=== PATIENT | female | born 1950 | race African-American/Black ===

== ENCOUNTER 2021-01-23 11:57 | Inpatient (IN) | payer MEDICARE, MEDICAID ==
[~2021-01-23] VITALS: Ht 165.1 cm; Wt 40.0 kg
[2021-01-23] MEDS ORDERED: IV NORMAL SALINE 1000ML BAG 1,000 ML IV ONE ×2 (12:30→14:30)
[2021-01-23] MEDS ORDERED: FAMOTIDINE 20 MG/2 ML VIAL IVP ONE (12:30)
[2021-01-23] MEDS ORDERED: ONDANSETRON PF 4 MG/2 ML VIAL. IVP ONE (12:30)
--- NOTE | 2021-01-23 12:30 | PHYS DOC ---
Past Medical History Past Medical History: Anxiety, Asthma, Cancer, COPD, Hypertension, Other Additional Past Medical Histor: breast cancer, HIV Past Surgical History: Hysterectomy, Tonsillectomy, Other Additional Past Surgical Histo: bowel resection, adenoidectomy Smoking Status: Current Every Day Smoker Additional Information: reports she does not inhale cigarettes, just lights them Alcohol Use: None Drug Use: None General Adult EDM: Chief Complaint: ABDOMINAL PAIN HPI: HPI: Patient is a 70 year old female with a history of open hysterectomy years ago, bowel resection, hypertension, HIV, anxiety, COPD current smoker, breast cancer currently on chemo every 3 weeks last treatment 3 weeks ago presenting to the ED today complaining of 10 out of 10 bilateral upper abdominal pain with nausea and vomiting, symptoms began yesterday around 4 PM. Patient denies any fever. Jah cribes the pain as cramping and intermittent but has gotten worse this morning. Denies any hematemesis. Denies any diarrhea. Denies anything specifically relieving the pain. Review of Systems: Review of Systems: Constitutional: Denies fever or chills. [] Eyes: Denies change in visual acuity. [] HENT: Denies nasal congestion or sore throat. [] Respiratory: Denies cough or shortness of breath. [] Cardiovascular: Denies chest pain or edema. [] GI: Reports bilateral upper abdominal pain with nausea and vomiting, denies bloody stools or diarrhea. [] : Denies dysuria. [] Musculoskeletal: Denies back pain or joint pain. [] Integument: Denies rash. [] Neurologic: Denies headache, focal weakness or sensory changes. [] Psychiatric: Denies depression or anxiety. [] Heart Score: Risk Factors: Risk Factors: DM, Current or recent (<one month) smoker, HTN, HLP, family history of CAD, obesity. Risk Scores: Score 0 - 3: 2.5% MACE over next 6 weeks - Discharge Home Score 4 - 6: 20.3% MACE over next 6 weeks - Admit for Clinical Observation Score 7 - 10: 72.7% MACE over next 6 weeks - Early Invasive Strategies Current Medications: Current Medications Medications (Trade) Dose Ordered Sig/Corey Start Time Stop Time Status Last Admin Dose Admin Famotidine (Pepcid Vial) 20 mg 1X ONCE 01/23/21 12:30 01/23/21 12:31 Morphine Sulfate (Morphine Sulfate) 4 mg PRN Q15MIN PRN 01/23/21 12:30 01/24/21 12:29 Ondansetron HCl (Zofran) 4 mg 1X ONCE 01/23/21 12:30 01/23/21 12:31 Sodium Chloride 1,000 ml @ 1,000 mls/hr 1X ONCE 01/23/21 12:30 01/23/21 13:29 Allergies: Allergies: Allergies Coded Allergies Type Severity Reaction Last Updated Verified No Known Drug Allergies 01/23/21 No Physical Exam: PE: Constitutional: Cachectic appearing patient, no acute distress, non-toxic appearance. [] HENT: Normocephalic, atraumatic, bilateral external ears normal, oropharynx moist, no oral exudates, nose normal. [] Eyes: PERRLA, EOMI, conjunctiva normal, no discharge. [] Neck: Normal range of motion, no tenderness, supple, no stridor. [] Cardiovascular:Heart rate regular rhythm Lungs & Thorax: Short of air from chronic COPD, decreased lung sounds Abdomen: Old healed surgical incision noted midline abdomen. Bowel sounds normal, soft, tenderness diffusely to bilateral upper abdomen with no obvious point tenderness to the right upper quadrant, negative Hopper sign, no right lower quadrant tenderness, no masses, no pulsatile masses. [] Skin: Warm, dry, no erythema, no rash. [] Back: No tenderness, no CVA tenderness. [] Extremities: No tenderness, no cyanosis, no clubbing, ROM intact, no edema. [] Neurologic: Alert and oriented X 3, normal motor function, normal sensory fun ction, no focal deficits noted. [] Psychologic: Affect normal, judgement normal, mood normal. [] Current Patient Data: Vital Signs: Vital Signs Date Time Temp Pulse Resp B/P (MAP) Pulse Ox O2 Delivery O2 Flow Rate FiO2 01/23/21 12:13 97.9 67 24 134/74 (94) 97 Room Air 97.9 EKG: EKG: [] Radiology/Procedures: Radiology/Procedures: []PROCEDURE: CT ABD PELV W/ IV CONTRST ONLY INDICATION: Reason: n/v/abd pain / Spl. Instructions: [id number] 75ML / History: . COMPARISON: None. TECHNIQUE: Axial CT images obtained through the abdomen and pelvis with contrast. One or more of the following individualized dose reduction techniques were utilized for this examination: 1. Automated exposure control; 2. Adjustment of the mA and/or kV according to patient size; 3. Use of iterative reconstruction technique. FINDINGS: Emphysematous changes at partially visualized lung bases. There are some surgical clips seen adjacent to the esophagus with postoperative changes at stomach. Moderate calcific atherosclerosis. Liver is prominent in size and appears mildly low density which can be seen with mild fatty infiltration. No peripancreatic fluid collection. Calcification within the pancreas. Spleen unremarkable. No left-sided hydronephrosis. Urinary bladder has minimal urine within it at time of exam. No right-sided hydronephrosis. Dilated loops of small bowel are identified with distal decompression there are small amount of mesenteric edema seen transition point at right lower quadrant. Suspected second transition point at left side of abdomen Degenerative changes of the spine with multilevel central canal and neural for aminal stenosis. Osseous demineralization. IMPRESSION: * Dilated loops of small bowel are identified with adjacent mesenteric edema which can be seen with small bowel obstruction. There is 2 apparent transition points therefore closed-loop is a consideration. * Emphysematous changes at lung bases. Electronically signed by: Gem Nicole MD (01/23/2021 2:01 PM) [id number] DICTATED and SIGNED BY: GEM NICOLE MD DATE: 01/23/21 [id number] Course & Med Decision Making: Course & Med Decision Making Pertinent Labs and Imaging studies reviewed. (See chart for details) This is a 70-year-old female patient currently on chemo for breast cancer presenting today complaining of bilateral upper abdominal pain with nausea and vomiting that began last night. Last chemo treatment was 3 weeks ago. Patient appears short of air and states this is from her chronic COPD. She is cachectic. CBC, CMP, lactic-with nothing really acute CT of the abdomen and pelvic was noted for small bowel obstruction with transition point in the right lower quadrant as well as left lower quadrant Spoke with Dr. Farris who requested to admit patient and put an NG Spoke with Dr. Esquivel who accepted patient for admission Advised to consider smoking cessation. [place] Disclaimer: Sergey Disclaimer: This electronic medical record was generated, in whole or in part, using a voice recognition dictation system. Departure Departure Impression: Primary Impression: SBO (small bowel obstruction) Additional Impressions: Person under investigation for COVID-19 Nausea and vomiting Qualified Codes: R11.2 - Nausea with vomiting, unspecified Abdominal pain Qualified Codes: R10.10 - Upper abdominal pain, unspecified Smoking addiction Disposition: 09 ADMITTED INPT THIS HOSP Condition: STABLE Referrals: UNKNOWN PCP NAME (PCP) MELLY SAWANT APRN Jan 23, 2021 12:30
[2021-01-23 12:49] LABS: BASO # 0.1 x10^3/uL (0.0-0.2); BASO % 1 % (0-3); EOS % 1 % (0-3); HEMATOCRIT 41.9 % (36.0-47.0); HEMOGLOBIN 13.6 g/dL (12.0-15.5); LYMPH # 0.9 x10^3/uL (1.0-4.8); LYMPH % 11 % (24-48); MEAN CORPUSCULAR HEMOGLOBIN 31 pg (25-35); MEAN CORPUSCULAR HGB CONC 33 g/dL (31-37); MEAN CORPUSCULAR VOLUME 94 fL (79-100); MONO # 0.6 x10^3/uL (0.0-1.1); MONO % 7 % (0-9); NEUT # 6.8 x10^3/uL (1.8-7.7); NEUT % 81 % (31-73); PLATELET COUNT 231 x10^3/uL (140-400); RED BLOOD COUNT 4.46 x10^6/uL (3.50-5.40); RED CELL DISTRIBUTION WIDTH 13.4 % (11.5-14.5); WHITE BLOOD COUNT 8.4 x10^3/uL (4.0-11.0)
[2021-01-23 13:04] LABS: CALCIUM 8.7 mg/dL (8.5-10.1); CREATININE 0.9 mg/dL (0.6-1.0); GFR 74.7; POTASSIUM 4.9 mmol/L (3.5-5.1)
[2021-01-23 13:10] LABS: ALBUMIN 3.4 g/dL (3.4-5.0); ALBUMIN/GLOBULIN RATIO 0.8 (1.0-1.7); MAGNESIUM 2.3 mg/dL (1.8-2.4); TOTAL BILIRUBIN 0.2 mg/dL (0.2-1.0); TOTAL PROTEIN 7.9 g/dL (6.4-8.2)
[2021-01-23] MEDS: MORPHINE SULFATE 4 MG/ML VIAL. IV/SQ PRN ×2 (13:20→14:47)
[2021-01-23] MEDS ORDERED: CONTRAST GIVEN. MC PRN (13:30)
[2021-01-23] MEDS ORDERED: IOHEXOL 300 MG/ML 100ML VIAL. IV ONE (13:30)
--- NOTE | 2021-01-23 14:03 | RAD ---
INDICATION: Reason: n/v/abd pain / Spl. Instructions: [id number] 75ML / History: . COMPARISON: None. TECHNIQUE: Axial CT images obtained through the abdomen and pelvis with contrast. One or more of the following individualized dose reduction techniques were utilized for this examinat ion: 1. Automated exposure control; 2. Adjustment of the mA and/or kV according to patient size; 3 . Use of iterative reconstruction technique. FINDINGS: Emphysematous changes at partially visualized lung bases. There are some surgical clips seen adjacent to the esophagus with postoperative changes at stomach. Moderate calcific atherosclerosis. Liver is prominent in size and appears mildly low density which can be seen with mild fatty infiltrat ion. No peripancreatic fluid collection. Calcification within the pancreas. Spleen unremarkable. No left-sided hydronephrosis. Urinary bladder has minimal urine within it at time of exam. No right-sided hydronephrosis. Dilated loops of small bowel are identified with distal decompression there are small amount of mesenteric edema seen transition point at right lower quadrant. Suspected s econd transition point at left side of abdomen Degenerative changes of the spine with multilevel central canal and neural foraminal stenosis. Osseous demineralization. IMPRESSION: * Dilated loops of small bowel are identified with adjacent mesenteric edema which can be seen with small bowel obstruction. There is 2 apparent transition points therefore closed-loop is a considerat ion. * Emphysematous changes at lung bases. Electronically signed by: Harish Barroso MD (01/23/2021 2:01 PM) [id number]
[2021-01-23] MEDS ORDERED: MORPHINE SULFATE 4 MG/ML VIAL. IV PRN (14:30)
[2021-01-23] MEDS ORDERED: ONDANSETRON PF 4 MG/2 ML VIAL. IV PRN (14:30)
--- NOTE | 2021-01-23 15:23 | EKG ---
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
--- NOTE | 2021-01-23 15:24 | PDOC1 ---
History and Physical Date of Service: DOS: DATE: 01/23/21 TIME: 15:18 Chief Complaint: Chief Complain: Abdominal pain History of Present Illness: HPI: 70 year old female with a history of open hysterectomy years ago, bowel resection, hypertension, HIV, anxiety, COPD current smoker, breast cancer currently on chemo every 3 weeks last treatment 3 weeks ago presenting to the ED today complaining of 10 out of 10 bilateral upper abdominal pain with nausea and vomiting, symptoms began yesterday around 4 PM. Patient denies any fever. Describes the pain as cramping and intermittent but has gotten worse this morning. Denies any hematemesis. Denies any diarrhea. Denies anything specifically relieving the pain. Past Medical/Surgical History: PMH/PSH: Past Medical History: Anxiety, Asthma, Cancer, COPD, Hypertension, breast cancer, HIV Past Surgical History: Hysterectomy, Tonsillectomy, bowel resection, adenoidectomy Allergies: Allergies: Coded Allergies: No Known Drug Allergies (Unverified , 01/23/21) Family History: Family History: Reviewed with no relevant findings Social History: Social History: Smoking Status: Current Every Day Smoker Additional Information: reports she does not inhale cigarettes, just lights them Alcohol Use: None Drug Use: None Current Medications: Current Medications Current Medications Sodium Chloride 1,000 ml @ 1,000 mls/hr 1X ONCE IV Last administered on 01/23/21at 13:17; Start 01/23/21 at 12:30; Stop 01/23/21 at 13:29; Status DC Ondansetron HCl (Zofran) 4 mg 1X ONCE IVP Last administered on 01/23/21at 13:17; Start 01/23/21 at 12:30; Stop 01/23/21 at 12:31; Status DC Famotidine (Pepcid Vial) 20 mg 1X ONCE IVP Last administered on 01/23/21at 13:17; Start 01/23/21 at 12:30; Stop 01/23/21 at 12:31; Status DC Morphine Sulfate (Morphine Sulfate) 4 mg PRN Q15MIN PRN IV/SQ PAIN GREATER THAN 3/10 Last administered on 01/23/21at 14:47; Start 01/23/21 at 12:30; Stop 01/24/21 at 12:29 Iohexol (Omnipaque 300 Mg/ml) 75 ml 1X ONCE IV Last administered on 01/23/21at 13:41; Start 01/23/21 at 13:30; Stop 01/23/21 at 13:31; Status DC Info (CONTRAST GIVEN -- Rx MONITORING) 1 each PRN DAILY PRN MC SEE COMMENTS; Start 01/23/21 at 13:30; Stop 01/25/21 at 13:29 Ondansetron HCl (Zofran) 4 mg PRN Q8HRS PRN IV NAUSEA/VOMITING; Start 01/23/21 at 14:30; Stop 01/24/21 at 14:29 Morphine Sulfate (Morphine Sulfate) 4 mg PRN Q2HR PRN IV PAIN; Start 01/23/21 at 14:30; Stop 01/24/21 at 14:29 Sodium Chloride 1,000 ml @ 125 mls/hr 1X ONCE IV Last administered on 01/23/21at 15:14; Start 01/23/21 at 14:30; Stop 01/23/21 at 22:29 ROS: Review of Systems Review of System REVIEW OF SYSTEMS: GENERAL: Denies weakness SKIN: No bruising, hair changes or rashes. EYES: No blurred, double or loss of vision. NOSE AND THROAT: No history of nosebleeds, hoarseness or sore throat. HEART: No history of palpitations, chest pain or shortness of breath on exertion. LUNGS: Denies cough, hemoptysis, wheezing or shortness of breath. GASTROINTESTINAL: Denies changes in appetite, nausea, vomiting, diarrhea or constipation. GENITOURINARY: No history of frequency, urgency, hesitancy or nocturia. NEUROLOGIC: Denies history of numbness, tingling, or tremor. PSYCHIATRIC: No history of panic, anxiety or depression. ENDOCRINE: No history of heat or cold intolerance, polyuria or polydipsia. EXTREMITIES: Denies joint pain, pain on walking or stiffness. Physical Exam: Vital Signs: Vital Signs Date Time Temp Pulse Resp B/P (MAP) Pulse Ox O2 Delivery O2 Flow Rate FiO2 01/23/21 12:13 97.9 67 24 134/74 (94) 97 Room Air 97.9 Physcial Exam: GEN: No apparent distress. Alert and oriented HEENT: Normal cephalic, atraumatic, external auditory canals are patent EYES: Extraocular muscles are intact, pupil are equally round and reactive to light and accommodation MUSCULOSKELETAL: Well developed , well nourished, good range of motion ENDOCRINE: No thyromegaly was palpated LYMPHATICS: No cervical chain or axillary nodes were noted HEMATOPOIETIC: No bruising NECK: Supple, no JVD, no thyromegaly was noted LUNGS: Clear to auscultation in all lung goldstein without rhonchi or wheezing HEART: RRR, S!, S2 present. Peripheral pulses intact, no obvious murmurs noted ABDOMEN: Soft, nontender. Positive bowel sounds, no organomegaly, normal bowel sounds EXTREMITIES: Without clubbing, cyanosis, or edema. Pedal pulses intact. Negative Homans sign NEUROLOGIC: Normal speech and tone. A&O x 3, moves all extremities, no obvious focal deficits PSYCHIATRIC: Normal affect, normal mood. Stable SKIN: No ulcerations or rashes, good skin turgor, no jaundice VASCULAR: Good capillary refill, neurovascular bundle appears to be intact Labs: Labs: Laboratory Tests Test 01/23/21 12:27 01/23/21 12:35 Procalcitonin < 0.10 ng/mL (0.00-0.10) White Blood Count 8.4 x10^3/uL (4.0-11.0) Red Blood Count 4.46 x10^6/uL (3.50-5.40) Hemoglobin 13.6 g/dL (12.0-15.5) Hematocrit 41.9 % (36.0-47.0) Mean Corpuscular Volume 94 fL (79-100) Mean Corpuscular Hemoglobin 31 pg (25-35) Mean Corpuscular Hemoglobin Concent 33 g/dL (31-37) Red Cell Distribution Width 13.4 % (11.5-14.5) Platelet Count 231 x10^3/uL (140-400) Neutrophils (%) (Auto) 81 % (31-73) Lymphocytes (%) (Auto) 11 % (24-48) Monocytes (%) (Auto) 7 % (0-9) Eosinophils (%) (Auto) 1 % (0-3) Basophils (%) (Auto) 1 % (0-3) Neutrophils # (Auto) 6.8 x10^3/uL (1.8-7.7) Lymphocytes # (Auto) 0.9 x10^3/uL (1.0-4.8) Monocytes # (Auto) 0.6 x10^3/uL (0.0-1.1) Eosinophils # (Auto) 0.0 x10^3/uL (0.0-0.7) Basophils # (Auto) 0.1 x10^3/uL (0.0-0.2) Sodium Level 139 mmol/L (136-145) Potassium Level 4.9 mmol/L (3.5-5.1) Chloride Level 103 mmol/L (98-107) Carbon Dioxide Level 27 mmol/L (21-32) Anion Gap 9 (6-14) Blood Urea Nitrogen 21 mg/dL (7-20) Creatinine 0.9 mg/dL (0.6-1.0) Estimated GFR (Cockcroft-Gault) 74.7 BUN/Creatinine Ratio 23 (6-20) Glucose Level 129 mg/dL (70-99) Lactic Acid Level 1.9 mmol/L (0.4-2.0) Calcium Level 8.7 mg/dL (8.5-10.1) Magnesium Level 2.3 mg/dL (1.8-2.4) Total Bilirubin 0.2 mg/dL (0.2-1.0) Aspartate Amino Transf (AST/SGOT) 29 U/L (15-37) Alanine Aminotransferase (ALT/SGPT) 27 U/L (14-59) Alkaline Phosphatase 257 U/L (46-116) Troponin I Quantitative < 0.017 ng/mL (0.000-0.055) NM-Gwq-J-Type Natriuretic Peptide 33 pg/mL (0-124) Total Protein 7.9 g/dL (6.4-8.2) Albumin 3.4 g/dL (3.4-5.0) Albumin/Globulin Ratio 0.8 (1.0-1.7) Lipase 104 U/L (73-393) Ethyl Alcohol Level < 10 mg/dL (0-10) Laboratory Tests Test 01/23/21 12:27 01/23/21 12:35 Procalcitonin < 0.10 ng/mL (0.00-0.10) White Blood Count 8.4 x10^3/uL (4.0-11.0) Red Blood Count 4.46 x10^6/uL (3.50-5.40) Hemoglobin 13.6 g/dL (12.0-15.5) Hematocrit 41.9 % (36.0-47.0) Mean Corpuscular Volume 94 fL (79-100) Mean Corpuscular Hemoglobin 31 pg (25-35) Mean Corpuscular Hemoglobin Concent 33 g/dL (31-37) Red Cell Distribution Width 13.4 % (11.5-14.5) Platelet Count 231 x10^3/uL (140-400) Neutrophils (%) (Auto) 81 % (31-73) Lymphocytes (%) (Auto) 11 % (24-48) Monocytes (%) (Auto) 7 % (0-9) Eosinophils (%) (Auto) 1 % (0-3) Basophils (%) (Auto) 1 % (0-3) Neutrophils # (Auto) 6.8 x10^3/uL (1.8-7.7) Lymphocytes # (Auto) 0.9 x10^3/uL (1.0-4.8) Monocytes # (Auto) 0.6 x10^3/uL (0.0-1.1) Eosinophils # (Auto) 0.0 x10^3/uL (0.0-0.7) Basophils # (Auto) 0.1 x10^3/uL (0.0-0.2) Sodium Level 139 mmol/L (136-145) Potassium Level 4.9 mmol/L (3.5-5.1) Chloride Level 103 mmol/L (98-107) Carbon Dioxide Level 27 mmol/L (21-32) Anion Gap 9 (6-14) Blood Urea Nitrogen 21 mg/dL (7-20) Creatinine 0.9 mg/dL (0.6-1.0) Estimated GFR (Cockcroft-Gault) 74.7 BUN/Creatinine Ratio 23 (6-20) Glucose Level 129 mg/dL (70-99) Lactic Acid Level 1.9 mmol/L (0.4-2.0) Calcium Level 8.7 mg/dL (8.5-10.1) Magnesium Level 2.3 mg/dL (1.8-2.4) Total Bilirubin 0.2 mg/dL (0.2-1.0) Aspartate Amino Transf (AST/SGOT) 29 U/L (15-37) Alanine Aminotransferase (ALT/SGPT) 27 U/L (14-59) Alkaline Phosphatase 257 U/L (46-116) Troponin I Quantitative < 0.017 ng/mL (0.000-0.055) AD-Uve-D-Type Natriuretic Peptide 33 pg/mL (0-124) Total Protein 7.9 g/dL (6.4-8.2) Albumin 3.4 g/dL (3.4-5.0) Albumin/Globulin Ratio 0.8 (1.0-1.7) Lipase 104 U/L (73-393) Ethyl Alcohol Level < 10 mg/dL (0-10) Images: Images CT ABDOMEN PELVIS IMPRESSION: * Dilated loops of small bowel are identified with adjacent mesenteric edema which can be seen with small bowel obstruction. There is 2 apparent transition points therefore closed-loop is a consideration. * Emphysematous changes at lung bases. Assessment/Plan Assessment/Plan Acute abdominal pain due to closed-loop small bowel obstruction Prerenal azotemia Elevated alkaline phosphatase Severe protein malnutrition, BMI of 14 History of breast cancer status postmastectomy and currently on chemotherapy Failure to thrive History of COPD History of HIV Admit to medicine for further management General surgery consult NG tube placement Continue IV fluids Keep n.p.o. IV pain control Lovenox for DVT prophylaxis Protonix GI prophylaxis ADA diet Full code Discussed with RN and SW Disposition pending surgical evaluation Surrogate decision maker is the Justifications for Admission Other Justification DONNA MAHARAJ MD Jan 23, 2021 15:24
[2021-01-23] MEDS ORDERED: DEXTROSE 50% 25 GM / 50ML DISP.SYRIN. IV PRN (15:30)
[2021-01-23] MEDS ORDERED: MORPHINE SULFATE 2 MG/ML VIAL. IV PRN (15:30)
[2021-01-23] MEDS ORDERED: DOCUSATE SODIUM 100 MG CAPSULE. PO PRN (15:30)
[2021-01-23] MEDS: IV NORMAL SALINE 1000ML BAG 1,000 ML IV SCH ×2 (15:30→23:09)
[2021-01-23] MEDS ORDERED: SENNOSIDES 8.6 MG TABLET PO PRN (15:30)
[2021-01-23] MEDS ORDERED: ACETAMINOPHEN 325 MG TABLET. PO PRN (15:30)
[2021-01-23] MEDS: ENOXAPARIN 30 MG/0.3 ML SYRINGE. SQ SCH (17:05)
[2021-01-23] MEDS: PANTOPRAZOLE IV PUSH 40 MG VIAL. IVP SCH (17:05)
[2021-01-23] MEDS: ONDANSETRON PF 4 MG/2 ML VIAL. IVP PRN (17:33)
[2021-01-23 17:40] VITALS: BP 130/81
--- NOTE | 2021-01-23 18:37 | EKG ---
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
[2021-01-23 19:00] VITALS: BP 132/65
[2021-01-23 23:00] VITALS: BP 105/65
[2021-01-24 03:00] VITALS: BP 121/63
[2021-01-24 07:00] VITALS: BP 101/56
[2021-01-24 07:25] LABS: BASO % 1 % (0-3); EOS # 0.1 x10^3/uL (0.0-0.7); EOS % 2 % (0-3); HEMATOCRIT 33.3 % (36.0-47.0); HEMOGLOBIN 10.8 g/dL (12.0-15.5); LYMPH # 1.2 x10^3/uL (1.0-4.8); LYMPH % 19 % (24-48); MEAN CORPUSCULAR HEMOGLOBIN 31 pg (25-35); MEAN CORPUSCULAR HGB CONC 32 g/dL (31-37); MEAN CORPUSCULAR VOLUME 95 fL (79-100); MONO # 0.6 x10^3/uL (0.0-1.1); MONO % 9 % (0-9); NEUT # 4.5 x10^3/uL (1.8-7.7); NEUT % 70 % (31-73); PLATELET COUNT 199 x10^3/uL (140-400); RED BLOOD COUNT 3.52 x10^6/uL (3.50-5.40); RED CELL DISTRIBUTION WIDTH 13.6 % (11.5-14.5); WHITE BLOOD COUNT 6.5 x10^3/uL (4.0-11.0)
[2021-01-24 07:43] LABS: CALCIUM 7.5 mg/dL (8.5-10.1); CREATININE 0.8 mg/dL (0.6-1.0); GFR 85.6; PHOSPHORUS 3.3 mg/dL (2.6-4.7); POTASSIUM 4.9 mmol/L (3.5-5.1)
[2021-01-24] MEDS: PANTOPRAZOLE IV PUSH 40 MG VIAL. IVP SCH (07:56)
--- NOTE | 2021-01-24 08:41 | PDOC2 ---
LATOYA MORGAN RELAY TESTER 01/24/21 0841: CONSULT Date of Consult Date of Consult DATE: 01/24/21 TIME: 08:35 Reason for Consult Reason for Consult: SBO Referring Physician Referring Physician: ER Identification/Chief Complaint Chief Complaint abdominal pain Source Source: Chart review, Patient History of Present Illness Reason for Visit: Started having abdominal pain Thursday, this progressively worsened, with vomiting yesterday. NO stool or flatus in a couple days. Currently pain improved still some nausea. Er attempted NG, however could not place and had significant nasal bleeding. Hx of gastric resection for ulcer 40 years ago. No known hx of bowel obstructions since that time. Only other surgery was a hysterectomy She is currently on chemotherapy at for breast cancer Past Medical History Cardiovascular: HTN Pulmonary: COPD GI: Other (ulcer) Heme/Onc: Cancer (breast ), Other (HIV) Past Surgical History Past Surgical History: Hysterectomy, Other (gastrectomy) Family History Family History: Other (noncontributory to current illness ) Social History <1 pack per day ALCOHOL: none Drugs: None Lives: with Family Current Problem List Problem List Problems Medical Problems: (1) Abdominal pain Status: Acute (2) Nausea and vomiting Status: Acute (3) Person under investigation for COVID-19 Status: Acute (4) SBO (small bowel obstruction) Status: Acute (5) Smoking addiction Status: Acute Current Medications Current Medications Current Medications Sodium Chloride 1,000 ml @ 1,000 mls/hr 1X ONCE IV Last administered on 01/23/21at 13:17; Start 01/23/21 at 12:30; Stop 01/23/21 at 13:29; Status DC Ondansetron HCl (Zofran) 4 mg 1X ONCE IVP Last administered on 01/23/21at 13:17; Start 01/23/21 at 12:30; Stop 01/23/21 at 12:31; Status DC Famotidine (Pepcid Vial) 20 mg 1X ONCE IVP Last administered on 01/23/21at 13:17; Start 01/23/21 at 12:30; Stop 01/23/21 at 12:31; Status DC Morphine Sulfate (Morphine Sulfate) 4 mg PRN Q15MIN PRN IV/SQ PAIN GREATER THAN 3/10 Last administered on 01/23/21at 14:47; Start 01/23/21 at 12:30; Stop 01/24/21 at 12:29 Iohexol (Omnipaque 300 Mg/ml) 75 ml 1X ONCE IV Last administered on 01/23/21at 13:41; Start 01/23/21 at 13:30; Stop 01/23/21 at 13:31; Status DC Info (CONTRAST GIVEN -- Rx MONITORING) 1 each PRN DAILY PRN MC SEE COMMENTS; Start 01/23/21 at 13:30; Stop 01/25/21 at 13:29 Ondansetron HCl (Zofran) 4 mg PRN Q8HRS PRN IV NAUSEA/VOMITING; Start 01/23/21 at 14:30; Stop 01/24/21 at 14:29 Morphine Sulfate (Morphine Sulfate) 4 mg PRN Q2HR PRN IV PAIN Last administered on 01/24/21at 03:36; Start 01/23/21 at 14:30; Stop 01/24/21 at 14:29 Sodium Chloride 1,000 ml @ 125 mls/hr 1X ONCE IV Last administered on 01/23/21at 15:14; Start 01/23/21 at 14:30; Stop 01/23/21 at 22:29; Status DC Sennosides (Senna) 17.2 mg PRN BID PRN PO CONSTIPATION; Start 01/23/21 at 15:30 Docusate Sodium (Colace) 100 mg PRN DAILY PRN PO HARD STOOLS; Start 01/23/21 at 15:30 Ondansetron HCl (Zofran) 4 mg PRN Q6HRS PRN IVP NAUSEA/VOMITING Last administered on 01/23/21at 17:33; Start 01/23/21 at 15:30 Dextrose (Dextrose 50%-Water Syringe) 12.5 gm PRN Q15MIN PRN IV SEE COMMENTS; Start 01/23/21 at 15:30 Sodium Chloride 1,000 ml @ 100 mls/hr Q10H IV Last administered on 01/23/21at 23:09; Start 01/23/21 at 15:30 Acetaminophen (Tylenol) 650 mg PRN Q4HRS PRN PO TEMP OVER 100.4F OR MILD PAIN; Start 01/23/21 at 15:30 Enoxaparin Sodium (Lovenox 30mg Syringe) 30 mg Q24H SQ Last administered on 01/23/21at 17:05; Start 01/23/21 at 16:00 Pantoprazole Sodium (PROTONIX VIAL for IV PUSH) 40 mg DAILYAC IVP Last administered on 01/24/21at 07:56; Start 01/23/21 at 16:30 Morphine Sulfate (Morphine Sulfate) 1 mg PRN Q1HR PRN IV PAIN; Start 01/23/21 at 15:30 Morphine Sulfate (Morphine Sulfate) 2 mg PRN Q2HR PRN IVP SEVERE PAIN 7-10; Start 01/23/21 at 15:45 Allergies Allergies: Coded Allergies: No Known Drug Allergies (Unverified , 01/23/21) ROS General: No: Chills, Other (fevers ) PSYCHOLOGICAL ROS: No: Anxiety, Depression Eyes: No Blurry vision, No Double vision HEENT: No: Heacaches, Sore Throat Hematological and Lymphatic: YES: Bleeding Problems; No: Blood Clots Respiratory: YES: Cough, Shortness of breath Cardiovascular: No Chest Pain, No Palpitations Gastrointestinal: Yes Other (see hpi) Genitourinary: No Dysuria, No Hematuria Musculoskeletal: No Joint Pain, No Muscle Pain Neurological: No Impaired Coord/balance, No Numbness/Tingling Skin: No Pruritus, No Rash Physical Exam General: Alert, Oriented X3, Cooperative HEENT: Atraumatic, PERRLA Lungs: Other (diminished, wearing 02) Heart: Regular rate, Normal S1, Normal S2 Abdomen: Soft, Other (mildly distended, nontender, midline scar ) Extremities: No clubbing, No cyanosis Skin: No rashes, No breakdown Neuro: Normal gait, Normal speech Psych/Mental Status: Mental status NL, Mood NL MUSCULOSKELETAL: No deformity, No swelling Vitals VITALS Vital Signs Date Time Temp Pulse Resp B/P (MAP) Pulse Ox O2 Delivery O2 Flow Rate FiO2 01/24/21 07:00 97.3 78 18 101/56 (71) 100 Nasal Cannula 2.0 97.3 Labs Labs Laboratory Tests Test 01/23/21 12:27 01/23/21 12:35 01/23/21 13:29 01/23/21 15:15 Procalcitonin < 0.10 ng/mL (0.00-0.10) White Blood Count 8.4 x10^3/uL (4.0-11.0) Red Blood Count 4.46 x10^6/uL (3.50-5.40) Hemoglobin 13.6 g/dL (12.0-15.5) Hematocrit 41.9 % (36.0-47.0) Mean Corpuscular Volume 94 fL (79-100) Mean Corpuscular Hemoglobin 31 pg (25-35) Mean Corpuscular Hemoglobin Concent 33 g/dL (31-37) Red Cell Distribution Width 13.4 % (11.5-14.5) Platelet Count 231 x10^3/uL (140-400) Neutrophils (%) (Auto) 81 % (31-73) Lymphocytes (%) (Auto) 11 % (24-48) Monocytes (%) (Auto) 7 % (0-9) Eosinophils (%) (Auto) 1 % (0-3) Basophils (%) (Auto) 1 % (0-3) Neutrophils # (Auto) 6.8 x10^3/uL (1.8-7.7) Lymphocytes # (Auto) 0.9 x10^3/uL (1.0-4.8) Monocytes # (Auto) 0.6 x10^3/uL (0.0-1.1) Eosinophils # (Auto) 0.0 x10^3/uL (0.0-0.7) Basophils # (Auto) 0.1 x10^3/uL (0.0-0.2) Sodium Level 139 mmol/L (136-145) Potassium Level 4.9 mmol/L (3.5-5.1) Chloride Level 103 mmol/L (98-107) Carbon Dioxide Level 27 mmol/L (21-32) Anion Gap 9 (6-14) Blood Urea Nitrogen 21 mg/dL (7-20) Creatinine 0.9 mg/dL (0.6-1.0) Estimated GFR (Cockcroft-Gault) 74.7 BUN/Creatinine Ratio 23 (6-20) Glucose Level 129 mg/dL (70-99) Lactic Acid Level 1.9 mmol/L (0.4-2.0) Calcium Level 8.7 mg/dL (8.5-10.1) Magnesium Level 2.3 mg/dL (1.8-2.4) Total Bilirubin 0.2 mg/dL (0.2-1.0) Aspartate Amino Transf (AST/SGOT) 29 U/L (15-37) Alanine Aminotransferase (ALT/SGPT) 27 U/L (14-59) Alkaline Phosphatase 257 U/L (46-116) Troponin I Quantitative < 0.017 ng/mL (0.000-0.055) < 0.017 ng/mL (0.000-0.055) JS-Tnq-F-Type Natriuretic Peptide 33 pg/mL (0-124) Total Protein 7.9 g/dL (6.4-8.2) Albumin 3.4 g/dL (3.4-5.0) Albumin/Globulin Ratio 0.8 (1.0-1.7) Lipase 104 U/L (73-393) Ethyl Alcohol Level < 10 mg/dL (0-10) Coronavirus (PCR) Not detected (Not Detected) Test 01/23/21 18:50 01/24/21 06:37 Troponin I Quantitative < 0.017 ng/mL (0.000-0.055) White Blood Count 6.5 x10^3/uL (4.0-11.0) Red Blood Count 3.52 x10^6/uL (3.50-5.40) Hemoglobin 10.8 g/dL (12.0-15.5) Hematocrit 33.3 % (36.0-47.0) Mean Corpuscular Volume 95 fL (79-100) Mean Corpuscular Hemoglobin 31 pg (25-35) Mean Corpuscular Hemoglobin Concent 32 g/dL (31-37) Red Cell Distribution Width 13.6 % (11.5-14.5) Platelet Count 199 x10^3/uL (140-400) Neutrophils (%) (Auto) 70 % (31-73) Lymphocytes (%) (Auto) 19 % (24-48) Monocytes (%) (Auto) 9 % (0-9) Eosinophils (%) (Auto) 2 % (0-3) Basophils (%) (Auto) 1 % (0-3) Neutrophils # (Auto) 4.5 x10^3/uL (1.8-7.7) Lymphocytes # (Auto) 1.2 x10^3/uL (1.0-4.8) Monocytes # (Auto) 0.6 x10^3/uL (0.0-1.1) Eosinophils # (Auto) 0.1 x10^3/uL (0.0-0.7) Basophils # (Auto) 0.0 x10^3/uL (0.0-0.2) Sodium Level 141 mmol/L (136-145) Potassium Level 4.9 mmol/L (3.5-5.1) Chloride Level 109 mmol/L (98-107) Carbon Dioxide Level 26 mmol/L (21-32) Anion Gap 6 (6-14) Blood Urea Nitrogen 23 mg/dL (7-20) Creatinine 0.8 mg/dL (0.6-1.0) Estimated GFR (Cockcroft-Gault) 85.6 Glucose Level 55 mg/dL (70-99) Calcium Level 7.5 mg/dL (8.5-10.1) Phosphorus Level 3.3 mg/dL (2.6-4.7) Magnesium Level 2.0 mg/dL (1.8-2.4) Laboratory Tests Test 01/23/21 12:27 01/23/21 12:35 01/23/21 13:29 01/23/21 15:15 Procalcitonin < 0.10 ng/mL (0.00-0.10) White Blood Count 8.4 x10^3/uL (4.0-11.0) Red Blood Count 4.46 x10^6/uL (3.50-5.40) Hemoglobin 13.6 g/dL (12.0-15.5) Hematocrit 41.9 % (36.0-47.0) Mean Corpuscular Volume 94 fL (79-100) Mean Corpuscular Hemoglobin 31 pg (25-35) Mean Corpuscular Hemoglobin Concent 33 g/dL (31-37) Red Cell Distribution Width 13.4 % (11.5-14.5) Platelet Count 231 x10^3/uL (140-400) Neutrophils (%) (Auto) 81 % (31-73) Lymphocytes (%) (Auto) 11 % (24-48) Monocytes (%) (Auto) 7 % (0-9) Eosinophils (%) (Auto) 1 % (0-3) Basophils (%) (Auto) 1 % (0-3) Neutrophils # (Auto) 6.8 x10^3/uL (1.8-7.7) Lymphocytes # (Auto) 0.9 x10^3/uL (1.0-4.8) Monocytes # (Auto) 0.6 x10^3/uL (0.0-1.1) Eosinophils # (Auto) 0.0 x10^3/uL (0.0-0.7) Basophils # (Auto) 0.1 x10^3/uL (0.0-0.2) Sodium Level 139 mmol/L (136-145) Potassium Level 4.9 mmol/L (3.5-5.1) Chloride Level 103 mmol/L (98-107) Carbon Dioxide Level 27 mmol/L (21-32) Anion Gap 9 (6-14) Blood Urea Nitrogen 21 mg/dL (7-20) Creatinine 0.9 mg/dL (0.6-1.0) Estimated GFR (Cockcroft-Gault) 74.7 BUN/Creatinine Ratio 23 (6-20) Glucose Level 129 mg/dL (70-99) Lactic Acid Level 1.9 mmol/L (0.4-2.0) Calcium Level 8.7 mg/dL (8.5-10.1) Magnesium Level 2.3 mg/dL (1.8-2.4) Total Bilirubin 0.2 mg/dL (0.2-1.0) Aspartate Amino Transf (AST/SGOT) 29 U/L (15-37) Alanine Aminotransferase (ALT/SGPT) 27 U/L (14-59) Alkaline Phosphatase 257 U/L (46-116) Troponin I Quantitative < 0.017 ng/mL (0.000-0.055) < 0.017 ng/mL (0.000-0.055) CM-Wgx-Y-Type Natriuretic Peptide 33 pg/mL (0-124) Total Protein 7.9 g/dL (6.4-8.2) Albumin 3.4 g/dL (3.4-5.0) Albumin/Globulin Ratio 0.8 (1.0-1.7) Lipase 104 U/L (73-393) Ethyl Alcohol Level < 10 mg/dL (0-10) Coronavirus (PCR) Not detected (Not Detected) Test 01/23/21 18:50 01/24/21 06:37 Troponin I Quantitative < 0.017 ng/mL (0.000-0.055) White Blood Count 6.5 x10^3/uL (4.0-11.0) Red Blood Count 3.52 x10^6/uL (3.50-5.40) Hemoglobin 10.8 g/dL (12.0-15.5) Hematocrit 33.3 % (36.0-47.0) Mean Corpuscular Volume 95 fL (79-100) Mean Corpuscular Hemoglobin 31 pg (25-35) Mean Corpuscular Hemoglobin Concent 32 g/dL (31-37) Red Cell Distribution Width 13.6 % (11.5-14.5) Platelet Count 199 x10^3/uL (140-400) Neutrophils (%) (Auto) 70 % (31-73) Lymphocytes (%) (Auto) 19 % (24-48) Monocytes (%) (Auto) 9 % (0-9) Eosinophils (%) (Auto) 2 % (0-3) Basophils (%) (Auto) 1 % (0-3) Neutrophils # (Auto) 4.5 x10^3/uL (1.8-7.7) Lymphocytes # (Auto) 1.2 x10^3/uL (1.0-4.8) Monocytes # (Auto) 0.6 x10^3/uL (0.0-1.1) Eosinophils # (Auto) 0.1 x10^3/uL (0.0-0.7) Basophils # (Auto) 0.0 x10^3/uL (0.0-0.2) Sodium Level 141 mmol/L (136-145) Potassium Level 4.9 mmol/L (3.5-5.1) Chloride Level 109 mmol/L (98-107) Carbon Dioxide Level 26 mmol/L (21-32) Anion Gap 6 (6-14) Blood Urea Nitrogen 23 mg/dL (7-20) Creatinine 0.8 mg/dL (0.6-1.0) Estimated GFR (Cockcroft-Gault) 85.6 Glucose Level 55 mg/dL (70-99) Calcium Level 7.5 mg/dL (8.5-10.1) Phosphorus Level 3.3 mg/dL (2.6-4.7) Magnesium Level 2.0 mg/dL (1.8-2.4) Assessment/Plan Assessment/Plan SBO vs ileus was unable to have NG placed in ER she has improved pain, however no bowel function--will obtain abdominal xr if still appearance of obstruction will ask radiology to assist with NG placement and obtain SBFT AMANDA GALDAMEZ MD 01/25/21 1646: CONSULT Assessment/Plan Assessment/Plan Agree with above LATOYA MORGAN APRN Jan 24, 2021 08:41 AMANDA GALDAMEZ MD Jan 25, 2021 16:46
[2021-01-24] MEDS: AMINO AC 3%/ELECTROLYTE/GLYCER 1,000 ML IV SCH (10:31)
[2021-01-24 11:00] VITALS: BP 101/50
[2021-01-24] MEDS ORDERED: hydrOXYzine 10 MG TABLET PO PRN (11:15)
[2021-01-24] MEDS: DRONABINOL 2.5 MG CAPSULE. PO SCH ×2 (11:30→16:01)
--- NOTE | 2021-01-24 11:40 | RAD ---
Acute abdominal series without comparison for small bowel obstruction. FINDINGS: Lungs are hyperinflated and there are coarse interstitial changes which may reflect superim posed pulmonary fibrosis. Heart size mildly enlarged. No pleural effusions. No focal pneumonic infilt rates. Small calcified granuloma in the right upper lung. No free air beneath the diaphragm. Stool is present in the right hemicolon. There are persistent dilated central small bowel loops with some kelsea nting suggesting mucosal edema. Overall distribution and extent of dilated small bowel is grossly sta ble compared to CT scan yesterday. Findings are concerning for persist small bowel obstruction. Posts urgical changes are seen at GE junction and in the upper abdomen. No pathologic calcifications are id entified. IMPRESSION: 1. Grossly stable appearance of distended edematous small bowel centrally concerning for small bowel obstruction. Electronically signed by: Gallo Treviño MD (01/24/2021 11:38 AM) [id number]
[2021-01-24] MEDS: ONDANSETRON PF 4 MG/2 ML VIAL. IVP PRN (11:47)
--- NOTE | 2021-01-24 11:57 | PDOC ---
[employer] PROGRESS NOTE Date of Service DOS: DATE: 01/24/21 TIME: 11:50 Chief Complaint Chief Complaint Abdominal pain, N/V Anxiety Asthma Cancer COPD Hypertension History of breast cancer HIV History of Present Illness History of Present Illness 01/24- discussed plan with staff- adding IV nutrition. Pt is plesent and wants to eat, and drink coffee. Spoke with pt about nothing by mouth for now, till obstruction (N/V) dissipates. Last chemo treatment for breast cancer was Thursday (01/21) at , pt happy as the mass has shrunk by 50%. Admits to previous abdominal surgery to repair an ulcer and possibility of adhesions. Consulting ID for HIV management. 70 year old female with a history of open hysterectomy years ago, bowel resection, hypertension, HIV, anxiety, COPD current smoker, breast cancer currently on chemo every 3 weeks last treatment 3 weeks ago presenting to the ED today complaining of 10 out of 10 bilateral upper abdominal pain with nausea and vomiting, symptoms began yesterday around 4 PM. Patient denies any fever. Describes the pain as cramping and intermittent but has gotten worse this morning. Denies any hematemesis. Denies any diarrhea. Denies anything specifically relieving the pain. Vitals/I&O Vitals/I&O: Vital Signs Date Time Temp Pulse Resp B/P (MAP) Pulse Ox O2 Delivery O2 Flow Rate FiO2 01/24/21 11:00 96.8 66 16 101/50 (67) 99 Nasal Cannula 2.0 96.8 I & O 01/23/21 01/23/21 01/24/21 15:00 23:00 07:00 Intake Total 1000 ml 240 ml Balance 1000 ml 240 ml Physical Exam Physical Exam: Very nice, anxious for food and coffee General: Alert, Oriented X3, Cooperative, No acute distress Heart: Regular rate, Normal S1, Normal S2 Lungs: Clear Abdomen: Soft, Other (mildly distended, nontender, midline scar ) Extremities: No clubbing, No cyanosis, No edema Skin: No rashes, No breakdown Labs Labs: Laboratory Tests Test 01/23/21 12:27 01/23/21 12:35 01/23/21 13:29 01/23/21 15:15 Procalcitonin < 0.10 ng/mL (0.00-0.10) White Blood Count 8.4 x10^3/uL (4.0-11.0) Red Blood Count 4.46 x10^6/uL (3.50-5.40) Hemoglobin 13.6 g/dL (12.0-15.5) Hematocrit 41.9 % (36.0-47.0) Mean Corpuscular Volume 94 fL (79-100) Mean Corpuscular Hemoglobin 31 pg (25-35) Mean Corpuscular Hemoglobin Concent 33 g/dL (31-37) Red Cell Distribution Width 13.4 % (11.5-14.5) Platelet Count 231 x10^3/uL (140-400) Neutrophils (%) (Auto) 81 % (31-73) Lymphocytes (%) (Auto) 11 % (24-48) Monocytes (%) (Auto) 7 % (0-9) Eosinophils (%) (Auto) 1 % (0-3) Basophils (%) (Auto) 1 % (0-3) Neutrophils # (Auto) 6.8 x10^3/uL (1.8-7.7) Lymphocytes # (Auto) 0.9 x10^3/uL (1.0-4.8) Monocytes # (Auto) 0.6 x10^3/uL (0.0-1.1) Eosinophils # (Auto) 0.0 x10^3/uL (0.0-0.7) Basophils # (Auto) 0.1 x10^3/uL (0.0-0.2) Sodium Level 139 mmol/L (136-145) Potassium Level 4.9 mmol/L (3.5-5.1) Chloride Level 103 mmol/L (98-107) Carbon Dioxide Level 27 mmol/L (21-32) Anion Gap 9 (6-14) Blood Urea Nitrogen 21 mg/dL (7-20) Creatinine 0.9 mg/dL (0.6-1.0) Estimated GFR (Cockcroft-Gault) 74.7 BUN/Creatinine Ratio 23 (6-20) Glucose Level 129 mg/dL (70-99) Lactic Acid Level 1.9 mmol/L (0.4-2.0) Calcium Level 8.7 mg/dL (8.5-10.1) Magnesium Level 2.3 mg/dL (1.8-2.4) Total Bilirubin 0.2 mg/dL (0.2-1.0) Aspartate Amino Transf (AST/SGOT) 29 U/L (15-37) Alanine Aminotransferase (ALT/SGPT) 27 U/L (14-59) Alkaline Phosphatase 257 U/L (46-116) Troponin I Quantitative < 0.017 ng/mL (0.000-0.055) < 0.017 ng/mL (0.000-0.055) CO-Tjp-Z-Type Natriuretic Peptide 33 pg/mL (0-124) Total Protein 7.9 g/dL (6.4-8.2) Albumin 3.4 g/dL (3.4-5.0) Albumin/Globulin Ratio 0.8 (1.0-1.7) Lipase 104 U/L (73-393) Ethyl Alcohol Level < 10 mg/dL (0-10) Coronavirus (PCR) Not detected (Not Detected) Test 01/23/21 18:50 01/24/21 06:37 Troponin I Quantitative < 0.017 ng/mL (0.000-0.055) White Blood Count 6.5 x10^3/uL (4.0-11.0) Red Blood Count 3.52 x10^6/uL (3.50-5.40) Hemoglobin 10.8 g/dL (12.0-15.5) Hematocrit 33.3 % (36.0-47.0) Mean Corpuscular Volume 95 fL (79-100) Mean Corpuscular Hemoglobin 31 pg (25-35) Mean Corpuscular Hemoglobin Concent 32 g/dL (31-37) Red Cell Distribution Width 13.6 % (11.5-14.5) Platelet Count 199 x10^3/uL (140-400) Neutrophils (%) (Auto) 70 % (31-73) Lymphocytes (%) (Auto) 19 % (24-48) Monocytes (%) (Auto) 9 % (0-9) Eosinophils (%) (Auto) 2 % (0-3) Basophils (%) (Auto) 1 % (0-3) Neutrophils # (Auto) 4.5 x10^3/uL (1.8-7.7) Lymphocytes # (Auto) 1.2 x10^3/uL (1.0-4.8) Monocytes # (Auto) 0.6 x10^3/uL (0.0-1.1) Eosinophils # (Auto) 0.1 x10^3/uL (0.0-0.7) Basophils # (Auto) 0.0 x10^3/uL (0.0-0.2) Sodium Level 141 mmol/L (136-145) Potassium Level 4.9 mmol/L (3.5-5.1) Chloride Level 109 mmol/L (98-107) Carbon Dioxide Level 26 mmol/L (21-32) Anion Gap 6 (6-14) Blood Urea Nitrogen 23 mg/dL (7-20) Creatinine 0.8 mg/dL (0.6-1.0) Estimated GFR (Cockcroft-Gault) 85.6 Glucose Level 55 mg/dL (70-99) Calcium Level 7.5 mg/dL (8.5-10.1) Phosphorus Level 3.3 mg/dL (2.6-4.7) Magnesium Level 2.0 mg/dL (1.8-2.4) Review of Systems Review of Systems: No new complaints Assessment and Plan Assessmemt and Plan Assessment Acute abdominal pain due to closed-loop small bowel obstruction secondary to adhesions Prerenal azotemia Elevated alkaline phosphatase Severe protein malnutrition, BMI of 14 History of breast cancer status postmastectomy and currently on chemotherapy Failure to thrive History of COPD History of HIV Plan General surgery consult Continue IV fluids Consult ID for HIV management Keep n.p.o. IV pain control Lovenox for DVT prophylaxis Protonix GI prophylaxis ADA diet Full code Discussed with RN and SW Disposition pending surgical evaluation Surrogate decision maker is the Comment Review of Relevant I have reviewed the following items russell (where applicable) has been applied. Medications: Current Medications Medications (Trade) Dose Ordered Sig/Corey Route PRN Reason Start Time Stop Time Status Last Admin Dose Admin Sodium Chloride 1,000 ml @ 1,000 mls/hr 1X ONCE IV 01/23/21 12:30 01/24/21 09:56 DC 01/23/21 13:17 Ondansetron HCl (Zofran) 4 mg 1X ONCE IVP 01/23/21 12:30 01/23/21 12:31 DC 01/23/21 13:17 Famotidine (Pepcid Vial) 20 mg 1X ONCE IVP 01/23/21 12:30 01/23/21 12:31 DC 01/23/21 13:17 Morphine Sulfate (Morphine Sulfate) 4 mg PRN Q15MIN PRN IV/SQ PAIN GREATER THAN 3/10 01/23/21 12:30 01/24/21 12:29 01/23/21 14:47 Iohexol (Omnipaque 300 Mg/ml) 75 ml 1X ONCE IV 01/23/21 13:30 01/23/21 13:31 DC 01/23/21 13:41 Morphine Sulfate (Morphine Sulfate) 4 mg PRN Q2HR PRN IV PAIN 01/23/21 14:30 01/24/21 14:29 01/24/21 03:36 Sodium Chloride 1,000 ml @ 125 mls/hr 1X ONCE IV 01/23/21 14:30 01/24/21 09:56 DC 01/23/21 15:14 Ondansetron HCl (Zofran) 4 mg PRN Q6HRS PRN IVP NAUSEA/VOMITING 01/23/21 15:30 01/24/21 11:47 Sodium Chloride 1,000 ml @ 100 mls/hr Q10H IV 01/23/21 15:30 01/24/21 09:56 DC 01/23/21 23:09 Enoxaparin Sodium (Lovenox 30mg Syringe) 30 mg Q24H SQ 01/23/21 16:00 01/23/21 17:05 Pantoprazole Sodium (PROTONIX VIAL for IV PUSH) 40 mg DAILYAC IVP 01/23/21 16:30 01/24/21 07:56 Amino Acids/ Glycerin/ Electrolytes 1,000 ml @ 75 mls/hr [id number] IV 01/24/21 09:45 01/24/21 10:31 Justifications for Admission Abdominal Pain Indications Is patient in severe pain?: Yes Justification for admission: Patient has severe pain that requires (parenteral analgesic-please state analgesics and route) at least every 4 hours necessitating inpatient level of care. Is NPO status required?: Yes Justification for admission: Patient may require to be NPO for greater 24hours making it medically necessary to manage patient as inpatient. Other Justification FLOWER ERICKSON III DO Jan 24, 2021 11:57
--- NOTE | 2021-01-24 12:07 | NUR ---
SS following up with discharge planning. SS reviewed pt chart and discussed with pt RN. Pt is from home with son and is currently requiring oxygen at two liters nasal canula. COVID19 negative. HIV positive. Pt being treated at for breast cancer. Pt had last chemotherapy on Thursday and has chemotherapy every three weeks. Possible small bowel obstruction. Pt on PPN. SS will continue to follow for discharge planning.
--- NOTE | 2021-01-24 13:40 | NUR ---
pt was transfered to the 4th floor for further care. she was Covid neg. called and gave report to Dai PEREZ. Najma PEREZ took the pt's items down to the new room, 404. Jules Ferguson RN
[2021-01-24] MEDS ORDERED: LIDOCAINE 2% JELLY 6ML IN APPLICATOR. MM ONE (13:45)
[2021-01-24 15:00] VITALS: BP 110/51
[2021-01-24] MEDS: ENOXAPARIN 30 MG/0.3 ML SYRINGE. SQ SCH (16:09)
--- NOTE | 2021-01-24 18:11 | RAD ---
Fluoroscopically guided NG tube placement INDICATION: 70-year-old woman in need of enteric decompression with prior unsuccessful attempts at NG tube placement. NG tube placement with imaging guidance is requested. COMPARISON: Abdomen and pelvis CT with IV contrast of 01/23/2021 TECHNIQUE AND FINDINGS: Using lidocaine infused lubricant jelly in the right nares, a lubricated 16 [place] sump tube was adva nced into the patient's stomach with fluoroscopic imaging guidance, tip in the antrum, and appropriat e placement confirmed with spot fluoroscopic imaging. A single image was acquired and a total of 0.3 minutes of fluoroscopy time was used. IMPRESSION: Successful fluoroscopic imaging guided enteric tube placement, tip in the gastric antrum. Electronically signed by: Luigi Rosado MD (01/24/2021 6:09 PM) [id number]
[2021-01-24] MEDS: MORPHINE SULFATE 2 MG/ML VIAL. IVP PRN (18:26)
[2021-01-24 19:00] VITALS: BP 106/39
[2021-01-24] MEDS: MIRTAZAPINE 15 MG TABLET PO SCH (19:17)
[2021-01-24 23:00] VITALS: BP 169/71
[2021-01-25] MEDS: MORPHINE SULFATE 2 MG/ML VIAL. IVP PRN ×4 (00:05→18:02)
[2021-01-25 03:00] VITALS: BP 110/68
[2021-01-25] MEDS: AMINO AC 3%/ELECTROLYTE/GLYCER 1,000 ML IV SCH ×2 (03:02→12:25)
--- NOTE | 2021-01-25 04:35 | NUR ---
Patient called RN to room stating that she felt like she was choking and couldn't breathe. RN noticed that patients NG was pulled most of the way out, RN removed it the rest of the way. Patient is refusing to have another NG placed at this time. notified.
--- NOTE | 2021-01-25 05:39 | NUR ---
said the NG is ok to be left out and see how patient does.
[2021-01-25] MEDS: PANTOPRAZOLE IV PUSH 40 MG VIAL. IVP SCH (06:08)
[2021-01-25 07:00] VITALS: BP 115/54
[2021-01-25] MEDS ORDERED: IOHEXOL 300 MG/ML 100ML VIAL. PO ONE ×3 (08:45→14:00)
[2021-01-25] MEDS ORDERED: CONTRAST GIVEN. MC PRN ×2 (09:00→14:00)
--- NOTE | 2021-01-25 09:06 | PDOC ---
LATOYA MORGAN MAT MAKER 01/25/21 0906: SURGICAL PROGRESS NOTE DATE: 01/25/21 TIME: 09:05 Subjective more abd pain today no flatus pulled ng out, pulled IV out Vital Signs Vital Signs Date Time Temp Pulse Resp B/P (MAP) Pulse Ox O2 Delivery O2 Flow Rate FiO2 01/25/21 07:00 98.5 58 16 115/54 (74) 96 Room Air 98.5 01/25/21 06:14 2.0 I&O Intake and Output 01/25/21 07:00 Intake Total 210 ml Balance 210 ml Intake Oral 210 ml # Voids 2 General: Cooperative, No acute distress Abdomen: Soft, Other (mildly distended, tender on exam ) Labs Laboratory Tests Test 01/23/21 12:27 01/23/21 12:35 01/23/21 13:29 01/23/21 15:15 Procalcitonin < 0.10 ng/mL (0.00-0.10) White Blood Count 8.4 x10^3/uL (4.0-11.0) Red Blood Count 4.46 x10^6/uL (3.50-5.40) Hemoglobin 13.6 g/dL (12.0-15.5) Hematocrit 41.9 % (36.0-47.0) Mean Corpuscular Volume 94 fL (79-100) Mean Corpuscular Hemoglobin 31 pg (25-35) Mean Corpuscular Hemoglobin Concent 33 g/dL (31-37) Red Cell Distribution Width 13.4 % (11.5-14.5) Platelet Count 231 x10^3/uL (140-400) Neutrophils (%) (Auto) 81 % (31-73) Lymphocytes (%) (Auto) 11 % (24-48) Monocytes (%) (Auto) 7 % (0-9) Eosinophils (%) (Auto) 1 % (0-3) Basophils (%) (Auto) 1 % (0-3) Neutrophils # (Auto) 6.8 x10^3/uL (1.8-7.7) Lymphocytes # (Auto) 0.9 x10^3/uL (1.0-4.8) Monocytes # (Auto) 0.6 x10^3/uL (0.0-1.1) Eosinophils # (Auto) 0.0 x10^3/uL (0.0-0.7) Basophils # (Auto) 0.1 x10^3/uL (0.0-0.2) Sodium Level 139 mmol/L (136-145) Potassium Level 4.9 mmol/L (3.5-5.1) Chloride Level 103 mmol/L (98-107) Carbon Dioxide Level 27 mmol/L (21-32) Anion Gap 9 (6-14) Blood Urea Nitrogen 21 mg/dL (7-20) Creatinine 0.9 mg/dL (0.6-1.0) Estimated GFR (Cockcroft-Gault) 74.7 BUN/Creatinine Ratio 23 (6-20) Glucose Level 129 mg/dL (70-99) Lactic Acid Level 1.9 mmol/L (0.4-2.0) Calcium Level 8.7 mg/dL (8.5-10.1) Magnesium Level 2.3 mg/dL (1.8-2.4) Total Bilirubin 0.2 mg/dL (0.2-1.0) Aspartate Amino Transf (AST/SGOT) 29 U/L (15-37) Alanine Aminotransferase (ALT/SGPT) 27 U/L (14-59) Alkaline Phosphatase 257 U/L (46-116) Troponin I Quantitative < 0.017 ng/mL (0.000-0.055) < 0.017 ng/mL (0.000-0.055) NG-Jvo-H-Type Natriuretic Peptide 33 pg/mL (0-124) Total Protein 7.9 g/dL (6.4-8.2) Albumin 3.4 g/dL (3.4-5.0) Albumin/Globulin Ratio 0.8 (1.0-1.7) Lipase 104 U/L (73-393) Ethyl Alcohol Level < 10 mg/dL (0-10) Coronavirus (PCR) Not detected (Not Detected) Test 01/23/21 18:50 01/24/21 06:37 Troponin I Quantitative < 0.017 ng/mL (0.000-0.055) White Blood Count 6.5 x10^3/uL (4.0-11.0) Red Blood Count 3.52 x10^6/uL (3.50-5.40) Hemoglobin 10.8 g/dL (12.0-15.5) Hematocrit 33.3 % (36.0-47.0) Mean Corpuscular Volume 95 fL (79-100) Mean Corpuscular Hemoglobin 31 pg (25-35) Mean Corpuscular Hemoglobin Concent 32 g/dL (31-37) Red Cell Distribution Width 13.6 % (11.5-14.5) Platelet Count 199 x10^3/uL (140-400) Neutrophils (%) (Auto) 70 % (31-73) Lymphocytes (%) (Auto) 19 % (24-48) Monocytes (%) (Auto) 9 % (0-9) Eosinophils (%) (Auto) 2 % (0-3) Basophils (%) (Auto) 1 % (0-3) Neutrophils # (Auto) 4.5 x10^3/uL (1.8-7.7) Lymphocytes # (Auto) 1.2 x10^3/uL (1.0-4.8) Monocytes # (Auto) 0.6 x10^3/uL (0.0-1.1) Eosinophils # (Auto) 0.1 x10^3/uL (0.0-0.7) Basophils # (Auto) 0.0 x10^3/uL (0.0-0.2) Sodium Level 141 mmol/L (136-145) Potassium Level 4.9 mmol/L (3.5-5.1) Chloride Level 109 mmol/L (98-107) Carbon Dioxide Level 26 mmol/L (21-32) Anion Gap 6 (6-14) Blood Urea Nitrogen 23 mg/dL (7-20) Creatinine 0.8 mg/dL (0.6-1.0) Estimated GFR (Cockcroft-Gault) 85.6 Glucose Level 55 mg/dL (70-99) Calcium Level 7.5 mg/dL (8.5-10.1) Phosphorus Level 3.3 mg/dL (2.6-4.7) Magnesium Level 2.0 mg/dL (1.8-2.4) Problem List Problems Medical Problems: (1) Abdominal pain Status: Acute (2) Nausea and vomiting Status: Acute (3) Person under investigation for COVID-19 Status: Acute (4) SBO (small bowel obstruction) Status: Acute (5) Smoking addiction Status: Acute Assessment/Plan SBFT today Justicifation of Admission Dx: Justifications for Admission: Justification of Admission Dx: Yes Comments: SBO AMANDA GALDAMEZ MD 01/25/21 1108: SURGICAL PROGRESS NOTE Assessment/Plan Plan for small bowel series today LATOYA MORGAN MAT MAKER Jan 25, 2021 09:06 AMANDA GALDAMEZ MD Jan 25, 2021 11:08
[2021-01-25] MEDS: ONDANSETRON PF 4 MG/2 ML VIAL. IVP PRN (09:41)
[2021-01-25 11:00] VITALS: BP 106/46
--- NOTE | 2021-01-25 11:12 | PDOC ---
[facility] PROGRESS NOTE Date of Service DOS: DATE: 01/25/21 TIME: 11:11 Chief Complaint Chief Complaint Acute abdominal pain due to closed-loop small bowel obstruction Prerenal azotemia Elevated alkaline phosphatase Severe protein malnutrition, BMI of 14 History of breast cancer status postmastectomy and currently on chemotherapy Failure to thrive History of COPD History of HIV Admit to medicine for further management General surgery consult to replace NG tube placement that came out Continue IV fluids Keep n.p.o. IV pain control Lovenox for DVT prophylaxis Protonix GI prophylaxis ADA diet Full code Discussed with RN and SW Disposition pending surgical evaluation Surrogate decision maker is the History of Present Illness History of Present Illness 01/25/2021 No acute events overnight. Patient seen this morning still having some nausea and actually vomited after I left. Her abdomen is distended and there is some upper quadrant tenderness. Patient will need to have her NG tube replaced as she is not having any flatus or bowel movement since her admission. Patient's chart, labs, images were reviewed and discussed with RN 01/24- discussed plan with staff- adding IV nutrition. Pt is plesent and wants to eat, and drink coffee. Spoke with pt about nothing by mouth for now, till obstruction (N/V) dissipates. Last chemo treatment for breast cancer was Thursday (01/21) at , pt happy as the mass has shrunk by 50%. Admits to previous abdominal surgery to repair an ulcer and possibility of adhesions. Consulting ID for HIV management. 70 year old female with a history of open hysterectomy years ago, bowel resection, hypertension, HIV, anxiety, COPD current smoker, breast cancer currently on chemo every 3 weeks last treatment 3 weeks ago presenting to the ED today complaining of 10 out of 10 bilateral upper abdominal pain with nausea and vomiting, symptoms began yesterday around 4 PM. Patient denies any fever. Describes the pain as cramping and intermittent but has gotten worse this morning. Denies any hematemesis. Denies any diarrhea. Denies anything specifically relieving the pain. Vitals/I&O Vitals/I&O: Vital Signs Date Time Temp Pulse Resp B/P (MAP) Pulse Ox O2 Delivery O2 Flow Rate FiO2 01/25/21 11:06 16 Nasal Cannula 2.0 01/25/21 11:00 98.3 60 106/46 (66) 93 98.3 I & O 01/24/21 01/24/21 01/25/21 15:00 23:00 07:00 Intake Total 210 ml Balance 210 ml Physical Exam Physical Exam: Very nice, anxious for food and coffee General: Alert, Cooperative, No acute distress Heart: Regular rate, Normal S1, Normal S2 Lungs: Clear Abdomen: Soft, Other (mildly distended, tender on exam ) Extremities: No clubbing, No cyanosis, No edema Skin: No rashes, No breakdown Assessment and Plan Assessmemt and Plan Problems Medical Problems: (1) Abdominal pain Status: Acute (2) Nausea and vomiting Status: Acute (3) Person under investigation for COVID-19 Status: Acute (4) SBO (small bowel obstruction) Status: Acute (5) Smoking addiction Status: Acute Comment Review of Relevant I have reviewed the following items russell (where applicable) has been applied. Medications: Current Medications Medications (Trade) Dose Ordered Sig/Corey Route PRN Reason Start Time Stop Time Status Last Admin Dose Admin Lidocaine HCl (Glydo (Lidocaine) Jelly) 1 valencia 1X ONCE MM 01/24/21 13:45 01/24/21 13:46 DC 01/24/21 14:02 Justifications for Admission Abdominal Pain Indications Is patient in severe pain?: Yes Justification for admission: Patient has severe pain that requires (parenteral analgesic-please state analgesics and route) at least every 4 hours necessitating inpatient level of care. Is NPO status required?: Yes Justification for admission: Patient may require to be NPO for greater 24hours making it medically necessary to manage patient as inpatient. Other Justification DONNA MAHARAJ MD Jan 25, 2021 11:12
[2021-01-25] MEDS: DRONABINOL 2.5 MG CAPSULE. PO SCH ×2 (11:30→16:30)
--- NOTE | 2021-01-25 11:35 | CONS ---
DATE OF CONSULTATION: 01/25/2021 REFERRING PHYSICIAN: Dr. Gill. REASON FOR CONSULTATION: HIV. HISTORY OF PRESENT ILLNESS: A 70-year-old female with history of HIV, on Atripla through [facility] for the last 10 years, stable per the patient report, presented to the ED with complaints of abdominal pain, mainly in the upper area with nausea and vomiting, which started the day prior to admission. The patient denied any fevers, chills, hematemesis, hematochezia, melena or rectal bleeding. Denies any diarrhea. Denied any new medications. She has not missed any of her dose and per the patient's report, her HIV has been stable. The patient has history of breast cancer for which she is undergoing chemotherapy. The patient was afebrile. White count was 8.4, hemoglobin of 13.6, platelets of 231. COVID-19 was negative. Creatinine was 0.9, lactate of 1.9. Troponin was normal. Lipase was 104. LFTs were normal except for alkaline phosphatase of 257. Ethyl alcohol was less than 10. The patient underwent CT of the abdomen and pelvis, which showed dilated loops of small bowel with adjacent mesentery edema, which can be seen with bowel obstruction, emphysematous changes in the lung base. ID consultation has been requested for HIV management. The patient had NG tube placement. She denies any flatus, today has more abdominal pain. She pulled out her IV and NG tube earlier today. She is refusing for undergoing small bowel series, brother at bedside. PAST MEDICAL HISTORY: HIV, on Atripla, stable disease per patient, no history of OI, anxiety, asthma, breast cancer, COPD, hypertension. PAST SURGICAL HISTORY: Hysterectomy, tonsillectomy, bowel resection, adenectomy. ALLERGIES: No known drug allergies. FAMILY HISTORY: As per HPI. SOCIAL HISTORY: Positive for smoking, no alcohol, no drugs. Is not sexually active. Denies any history of STDs or hepatitis. CURRENT MEDICATION: Zofran, famotidine, morphine. REVIEW OF SYSTEMS: Negative except for above in HPI. PHYSICAL EXAMINATION: VITAL SIGNS: Temperature 98.5, pulse 58, respiratory rate 16, blood pressure 115/54, oxygen saturation 96% on 2 liters by nasal cannula. GENERAL: Alert, oriented x 3 female, lying in bed comfortably, in mild distress from nausea, cooperative. HEENT: Normocephalic, atraumatic, anicteric. No thrush. NECK: Supple. LUNGS: Decreased breath sounds at the bases. HEART: S1, S2. No gallops or murmurs. ABDOMEN: Soft, distended. Midline scar present. Mildly tender. EXTREMITIES: No edema, no cyanosis, no clubbing. DERMATOLOGIC: Warm and dry. No generalized rash. NEUROLOGIC: Alert, oriented x 3, grossly nonfocal. PSYCHIATRIC: Cooperative. LABORATORY DATA: WBC 6.5, hemoglobin 10.8, hematocrit 33.3, platelets 199. Sodium 141, potassium 4.9, chloride 109, bicarbonate 26, BUN 23, creatinine 0.8, glucose 55. Lactate 1.9. Troponin normal. IMAGING DATA: CT chest, dilated loops of small bowel are identified with adjacent mesenteric edema, which can be seen with small bowel obstruction. There are 2 apparent transition point; therefore, post loop is a consideration. Emphysematous changes at the lung base. Osseous demineralization. Neural foraminal stenosis. Spleen unremarkable. Calcification within the pancreas. No peripancreatic fluid collection. Liver prominent in size. Mild low density, which can be seen with mild fatty infiltration. No left hydronephrosis. No right hydronephrosis. Acute abdominal series grossly stable appearance of distended, edematous, small bowel centrally, concerning for bowel obstruction. IMPRESSION: 1. HIV, stable per the patient report on Atripla for the last 10 years follows up at with DR Wood. Per patient's report, last HIV viral load is non-detectable. CD4 is stable. 2. Abdominal pain from SBO 3. Nausea and vomiting. 4. Small-bowel obstruction. 5. History of breast cancer on Chemotherapy. 6. Immunosuppression. 7. Chronic obstructive pulmonary disease changes. 8. History of smoking. 9. Anemia. RECOMMENDATIONS: 1. Hold Atripla for now due to NPO. 2. Bowel rest and further management of SBO per General Surgery. 3. Follow up labs and cultures. 4. Continue supportive care. 5. Maintain aspiration precaution. Thank you for allowing me to participate in this patient's care. If you have any questions, do not hesitate to contact me. D/W RN. Discussed with brother at bedside. TAMMY BLACKWELL MD DR: SHAHAB/edith JOB#: [id number] / [id number] BERNA
[2021-01-25] MEDS ORDERED: BENZOCAINE ONE 20% MUCOSAL SPRAY. MM (12:00)
[2021-01-25] MEDS ORDERED: LIDOCAINE 2% TOPICAL JELLY 5GM TUBE. TP ONE (13:30)
--- NOTE | 2021-01-25 13:47 | RAD ---
AP abdomen radiograph 01/25/2021 CLINICAL HISTORY: History of small bowel obstruction. An AP digital radiograph of the abdomen/pelvis was obtained. This was originally planned to be a scou t prior to a small bowel follow-through study; however, the patient refused to drink oral contrast an d the small bowel follow-through study was not performed. Comparison is made to a CT scan of the abdomen and pelvis dated 01/23/2021. Midline sutures are seen t hroughout the abdomen. Surgical clips overlie the region of the GE junction. Air distention of small bowel loops is seen within the abdomen consistent with a small bowel obstruction. This does not appea r significantly changed from the patient's CT scan. No radiopaque calculus is seen. The osseous struc tures are unchanged. IMPRESSION: Findings are again seen consistent with a small bowel obstruction. Electronically signed by: Segundo Franco MD (01/25/2021 1:45 PM) [id number]
[2021-01-25] MEDS ORDERED: LIDOCAINE 2% JELLY 6ML IN APPLICATOR. MM ONE (15:15)
[2021-01-25] MEDS: ENOXAPARIN 30 MG/0.3 ML SYRINGE. SQ SCH (16:00)
--- NOTE | 2021-01-25 16:47 | NUR ---
Attempted multiple times on floor and xray and still unsuccessful on insertion of NG tube d/t patient pushing back and refusing after. Brenton notifsam will reassess tomorrow am.
[2021-01-25 19:00] VITALS: BP 128/61
[2021-01-25] MEDS: MIRTAZAPINE 15 MG TABLET PO SCH (20:13)
[2021-01-25 23:00] VITALS: BP 149/66
[2021-01-26] MEDS: AMINO AC 3%/ELECTROLYTE/GLYCER 1,000 ML IV SCH ×2 (01:55→13:12)
[2021-01-26 03:00] VITALS: BP 110/42
[2021-01-26] MEDS ORDERED: IV RINGERS,LACTATED 1000ML 1,000 ML IV SCH (06:00)
[2021-01-26] MEDS ORDERED: fentaNYL PF VIAL 100 MCG/2 ML VIAL IVP PRN ×2 (06:00)
[2021-01-26] MEDS ORDERED: PROCHLORPERAZINE 10 MG/2 ML VIAL. IVP PRN (06:00)
[2021-01-26] MEDS ORDERED: HYDROmorphone 2 MG/ML VIAL IVP PRN (06:00)
[2021-01-26] MEDS ORDERED: MORPHINE SULFATE 2 MG/ML VIAL. IVP PRN (06:00)
[2021-01-26] MEDS: MORPHINE SULFATE 2 MG/ML VIAL. IVP PRN ×3 (06:01→22:08)
[2021-01-26] MEDS: PANTOPRAZOLE IV PUSH 40 MG VIAL. IVP SCH (06:01)
[2021-01-26] MEDS ORDERED: ONDANSETRON PF 4 MG/2 ML VIAL. ONE (07:01)
[2021-01-26] MEDS ORDERED: LIDOCAINE 2% PF 5 ML VIAL. ONE (07:01)
[2021-01-26] MEDS ORDERED: PROPOFOL 10 MG/ML (20ML) VIAL. IV ONE (07:01)
[2021-01-26] MEDS ORDERED: DEXAMETHASONE SOD PHOS 20 MG/5 ML VIAL. ONE (07:01)
[2021-01-26] MEDS ORDERED: PHENYLEPHRINE in 0.9% NACL PF 1 MG/10 ML SYRINGE. IV ONE (07:01)
[2021-01-26] MEDS ORDERED: ROCURONIUM 50 MG/5 ML VIAL. ONE (07:02)
[2021-01-26] MEDS ORDERED: fentaNYL PF VIAL 100 MCG/2 ML VIAL ONE (08:09)
[2021-01-26] MEDS ORDERED: SUCCINYLCHOLINE 200 MG/10 ML VIAL. ONE (08:09)
--- NOTE | 2021-01-26 08:20 | NUR ---
Pt. down to sx via bed.
--- NOTE | 2021-01-26 08:29 | RAD ---
Canceled procedure note INDICATION: 70-year-old female with signs and symptoms of small bowel obstruction requested for imagi ng guided nasogastric tube placement after several unsuccessful attempts at bedside on the inpatient floors. Previously placed nasogastric tube using imaging guidance the previous day was inadvertently removed overnight. COMPARISON: Postprocedural fluoroscopic imaging of the nasogastric tube placement of the previous day , 01/24/2021 TECHNIQUE AND FINDINGS: Patient arrived exhibiting mild signs and symptoms of chronic obstructive pulmonary disease with inha ler in hand. Reluctant to ingest water soluble oral contrast because it made her nauseated, she was nonetheless wi lling to attempt replacement of the nasogastric tube with me after we successfully placed a 16 F sump tube in her stomach through the right nares the previous day. She did request attempt at tube placem ent in a semi-upright position for greater breathing comfort. We subsequently proceeded to attempt placement of a similarly sized nasogastric tube using lidocaine jelly to her nostrils for lubrication in addition to duplicating daily along the length of the nasoga stric tube, first through the right nares, then the left. Patient experienced greater difficulty cooperating with the examination this time around due to resid ual nasopharyngeal sensitivity and suboptimal cooperation with epiglottic closure during tube passage . After approximately an hour of trying, including use of supplemental lidocaine jelly lubricant, patie nt elected to postpone any further attempts at this visit. She was transported back to the inpatient floor in stable condition with no fluoroscopic images acquired at this visit. IMPRESSION: Unsuccessful attempt at repeat nasogastric tube passage with imaging guidance. Electronically signed by: Luigi Rosado MD (01/26/2021 8:27 AM) [facility]
--- NOTE | 2021-01-26 08:37 | RAD ---
Abdomen series including single view chest 01/26/2021. Reason for exam: Small bowel obstruction. Comparison is made with a study of the previous day. No free air is seen. Gas is present within what is probably a mixture of large and small bowel. There is greater colonic gas and decreased small bowel gas. No abnormal masses or gas collections are seen . A single view of the chest show some hyperinflation. No infiltrate or effusion is seen. Heart size is normal. IMPRESSION: Decreased small bowel distention. Electronically signed by: Juan Yee Jr., MD (01/26/2021 8:35 AM) [id number]
--- NOTE | 2021-01-26 08:54 | PDOC ---
Infectious Disease Note Subjective: Subjective Patient feels better today Has dry heaves No vomiting Abdominal pain is improving Denies any fevers or chills Vital Signs: Vital Signs Vital Signs Date Time Temp Pulse Resp B/P (MAP) Pulse Ox O2 Delivery O2 Flow Rate FiO2 01/26/21 08:20 Nasal Cannula 2.0 01/26/21 06:01 20 92 01/26/21 03:00 97.7 70 110/42 (64) 97.7 Physical Exam: PHYSICAL EXAM GENERAL: Alert, oriented x 3 female, lying in bed comfortably, in mild distress from nausea, cooperative. HEENT: Normocephalic, atraumatic, anicteric. No thrush. NECK: Supple. LUNGS: Decreased breath sounds at the bases. HEART: S1, S2. No gallops or murmurs. ABDOMEN: Soft, distended. Midline scar present. Mildly tender. EXTREMITIES: No edema, no cyanosis, no clubbing. DERMATOLOGIC: Warm and dry. No generalized rash. NEUROLOGIC: Alert, oriented x 3, grossly nonfocal. PSYCHIATRIC: Cooperative. Medications: Inpatient Meds: Medications reviewed. Objective: Assessment: 1. HIV, stable per the patient report ,on Atripla for the last 10 years, follows up at with DR Wood. Per patient's report, last HIV viral load was non-detectable. CD4 stable. 2. Abdominal pain from SBO 3. Nausea and vomiting. 4. Small-bowel obstruction. 5. History of breast cancer on Chemotherapy. 6. Immunosuppression. 7. Chronic obstructive pulmonary disease changes. 8. History of smoking. 9. Anemia. Plan: Plan of Care 1. Hold Atripla for now due to NPO status. 2. Bowel rest and further management of SBO per General Surgery. 3. Follow up labs and cultures. 4. Maintain aspiration precaution. 5. Continue supportive care. TAMMY BLACKWELL MD Jan 26, 2021 08:54
--- NOTE | 2021-01-26 09:02 | PDOC ---
PROGRESS NOTES Date of Service DATE: 01/26/21 TIME: 09:01 Subjective Subjective pt states she has been passing "lots" of gas since yesterday, no abdominal pain Objective Objective Vital Signs Date Time Temp Pulse Resp B/P (MAP) Pulse Ox O2 Delivery O2 Flow Rate FiO2 01/26/21 08:20 Nasal Cannula 2.0 01/26/21 06:01 20 92 01/26/21 03:00 97.7 70 110/42 (64) 97.7 Intake and Output 01/26/21 07:00 # Voids 6 Physical Exam Abdomen: Soft (nontender) Heart: Regular rate Extremities: No clubbing, No cyanosis General: Alert, Oriented X3 Lungs: Clear to auscultation Assessment Assessment Problems Medical Problems: (1) Abdominal pain Status: Acute (2) Nausea and vomiting Status: Acute (3) Person under investigation for COVID-19 Status: Acute (4) SBO (small bowel obstruction) Status: Acute (5) Smoking addiction Status: Acute Plan Plan of Care Abd series today shows improvement, gas in colon, less SB distension; clinically passing gas, no pain. Plan to hold on surgery, proceed with SB series to see if sbo resolved vs partial obstruction Comment Review of Relevant I have reviewed the following items russell (where applicable) has been applied. Medications Current Medications Sodium Chloride 1,000 ml @ 1,000 mls/hr 1X ONCE IV Last administered on 01/23/21at 13:17; Start 01/23/21 at 12:30; Stop 01/24/21 at 09:56; Status DC Ondansetron HCl (Zofran) 4 mg 1X ONCE IVP Last administered on 01/23/21at 13:17; Start 01/23/21 at 12:30; Stop 01/23/21 at 12:31; Status DC Famotidine (Pepcid Vial) 20 mg 1X ONCE IVP Last administered on 01/23/21at 13:17; Start 01/23/21 at 12:30; Stop 01/23/21 at 12:31; Status DC Morphine Sulfate (Morphine Sulfate) 4 mg PRN Q15MIN PRN IV/SQ PAIN GREATER THAN 3/10 Last administered on 01/23/21at 14:47; Start 01/23/21 at 12:30; Stop 01/24/21 at 12:29; Status DC Iohexol (Omnipaque 300 Mg/ml) 75 ml 1X ONCE IV Last administered on 01/23/21at 13:41; Start 01/23/21 at 13:30; Stop 01/23/21 at 13:31; Status DC Info (CONTRAST GIVEN -- Rx MONITORING) 1 each PRN DAILY PRN MC SEE COMMENTS; Start 01/23/21 at 13:30; Stop 01/25/21 at 08:48; Status DC Ondansetron HCl (Zofran) 4 mg PRN Q8HRS PRN IV NAUSEA/VOMITING; Start 01/23/21 at 14:30; Stop 01/24/21 at 12:40; Status DC Morphine Sulfate (Morphine Sulfate) 4 mg PRN Q2HR PRN IV PAIN Last administered on 01/24/21at 03:36; Start 01/23/21 at 14:30; Stop 01/24/21 at 12:40; Status DC Sodium Chloride 1,000 ml @ 125 mls/hr 1X ONCE IV Last administered on 01/23/21at 15:14; Start 01/23/21 at 14:30; Stop 01/24/21 at 09:56; Status DC Sennosides (Senna) 17.2 mg PRN BID PRN PO CONSTIPATION; Start 01/23/21 at 15:30 Docusate Sodium (Colace) 100 mg PRN DAILY PRN PO HARD STOOLS; Start 01/23/21 at 15:30 Ondansetron HCl (Zofran) 4 mg PRN Q6HRS PRN IVP NAUSEA/VOMITING Last administered on 01/25/21at 09:41; Start 01/23/21 at 15:30 Dextrose (Dextrose 50%-Water Syringe) 12.5 gm PRN Q15MIN PRN IV SEE COMMENTS; Start 01/23/21 at 15:30 Sodium Chloride 1,000 ml @ 100 mls/hr Q10H IV Last administered on 01/23/21at 23:09; Start 01/23/21 at 15:30; Stop 01/24/21 at 09:56; Status DC Acetaminophen (Tylenol) 650 mg PRN Q4HRS PRN PO TEMP OVER 100.4F OR MILD PAIN; Start 01/23/21 at 15:30 Enoxaparin Sodium (Lovenox 30mg Syringe) 30 mg Q24H SQ Last administered on 01/24/21at 16:09; Start 01/23/21 at 16:00 Pantoprazole Sodium (PROTONIX VIAL for IV PUSH) 40 mg DAILYAC IVP Last administered on 01/26/21at 06:01; Start 01/23/21 at 16:30 Morphine Sulfate (Morphine Sulfate) 1 mg PRN Q1HR PRN IV MILD PAIN 1-3; Start 01/23/21 at 15:30 Morphine Sulfate (Morphine Sulfate) 2 mg PRN Q2HR PRN IVP SEVERE PAIN 7-10 Last administered on 01/26/21at 06:01; Start 01/23/21 at 15:45 Amino Acids/ Glycerin/ Electrolytes 1,000 ml @ 75 mls/hr [id number] IV Last administered on 01/26/21at 01:55; Start 01/24/21 at 09:45 Dronabinol (Marinol) 2.5 mg BIDACLD PO ; Start 01/24/21 at 11:30 Hydroxyzine HCl (Atarax) 10 mg PRN Q6HRS PRN PO ITCHING; Start 01/24/21 at 11:15 Mirtazapine (Remeron) 30 mg QHS PO ; Start 01/24/21 at 21:00 Lidocaine HCl (Glydo (Lidocaine) Jelly) 1 valencia 1X ONCE MM Last administered on 01/24/21at 14:02; Start 01/24/21 at 13:45; Stop 01/24/21 at 13:46; Status DC Iohexol (Omnipaque 300 Mg/ml) 400 ml 1X ONCE PO ; Start 01/25/21 at 08:45; Stop 01/25/21 at 08:48; Status DC Info (CONTRAST GIVEN -- Rx MONITORING) 1 each PRN DAILY PRN MC SEE COMMENTS; Start 01/25/21 at 09:00; Stop 01/27/21 at 08:59 Benzocaine (Hurricaine One) 1 spray 1X ONCE MM Last administered on 01/25/21at 12:00; Start 01/25/21 at 12:00; Stop 01/25/21 at 12:01; Status DC Lidocaine HCl (Xylocaine 2% Topical 5gm Tube) 1 valencia 1X ONCE TP ; Start 01/25/21 at 13:30; Stop 01/25/21 at 13:31; Status DC Iohexol (Omnipaque 300 Mg/ml) 200 ml 1X ONCE PO ; Start 01/25/21 at 14:00; Stop 01/25/21 at 14:01; Status DC Iohexol (Omnipaque 300 Mg/ml) 200 ml 1X ONCE PO ; Start 01/25/21 at 14:00; Stop 01/25/21 at 14:01; Status DC Info (CONTRAST GIVEN -- Rx MONITORING) 1 each PRN DAILY PRN MC SEE COMMENTS; Start 01/25/21 at 14:00; Stop 01/27/21 at 13:59 Lidocaine HCl (Glydo (Lidocaine) Jelly) 1 valencia 1X ONCE MM ; Start 01/25/21 at 15:15; Stop 01/25/21 at 15:16; Status DC Fentanyl Citrate (Fentanyl 2ml Vial) 25 mcg PRN Q5MIN PRN IVP MILD PAIN 1-3; Start 01/26/21 at 06:00; Stop 01/26/21 at 19:00 Fentanyl Citrate (Fentanyl 2ml Vial) 50 mcg PRN Q5MIN PRN IVP MODERATE PAIN 4- 6; Start 01/26/21 at 06:00; Stop 01/26/21 at 19:00 Morphine Sulfate (Morphine Sulfate) 1 mg PRN Q10MIN PRN IVP SEVERE PAIN 7-10; Start 01/26/21 at 06:00; Stop 01/26/21 at 19:00 Ringer's Solution 1,000 ml @ 30 mls/hr Q24H IV ; Start 01/26/21 at 06:00; Stop 01/26/21 at 17:59 Hydromorphone HCl (Dilaudid) 0.5 mg PRN Q10MIN PRN IVP SEVERE PAIN 7-10, 2nd CHOICE; Start 01/26/21 at 06:00; Stop 01/26/21 at 19:00 Prochlorperazine Edisylate (Compazine) 5 mg PACU PRN PRN IVP NAUSEA, MRX1; Start 01/26/21 at 06:00; Stop 01/26/21 at 19:00 Propofol (Diprivan) 200 mg STK-MED ONCE IV ; Start 01/26/21 at 07:01; Stop 01/26/21 at 07:01; Status DC Lidocaine HCl (Lidocaine Pf 2% Vial) 5 ml STK-MED ONCE .ROUTE ; Start 01/26/21 at 07:01; Stop 01/26/21 at 07:01; Status DC Dexamethasone Sodium Phosphate (Decadron) 20 mg STK-MED ONCE .ROUTE ; Start 01/26/21 at 07:01; Stop 01/26/21 at 07:01; Status DC Ondansetron HCl (Zofran) 4 mg STK-MED ONCE .ROUTE ; Start 01/26/21 at 07:01; Stop 01/26/21 at 07:01; Status DC Phenylephrine HCl (PHENYLEPHRINE in 0.9% NACL PF) 1 mg STK-MED ONCE IV ; Start 01/26/21 at 07:01; Stop 01/26/21 at 07:01; Status DC Rocuronium [place] (Zemuron) 50 mg STK-MED ONCE .ROUTE ; Start 01/26/21 at 07:02; Stop 01/26/21 at 07:02; Status DC Fentanyl Citrate (Fentanyl 2ml Vial) 100 mcg STK-MED ONCE .ROUTE ; Start 01/26/21 at 08:09; Stop 01/26/21 at 08:09; Status DC Succinylcholine Chloride (Anectine) 200 mg STK-MED ONCE .ROUTE ; Start 01/26/21 at 08:09; Stop 01/26/21 at 08:09; Status DC Vitals/I & O Vital Sign - Last 24 Hours 01/25/21 01/25/21 01/25/21 01/25/21 09:41 11:00 11:06 18:02 Temp 98.3 98.3 Pulse 60 Resp 16 18 16 16 B/P (MAP) 106/46 (66) Pulse Ox 93 O2 Delivery Nasal Cannula Room Air Nasal Cannula Room Air O2 Flow Rate 2.0 2.0 01/25/21 01/25/21 01/25/21 01/25/21 18:29 19:00 20:00 23:00 Temp 97.9 97.8 97.9 97.8 Pulse 71 66 Resp 16 18 18 B/P (MAP) 128/61 (83) 149/66 (93) Pulse Ox 96 95 O2 Delivery Room Air Room Air Nasal Cannula Room Air O2 Flow Rate 2.0 2.0 2.0 01/26/21 01/26/21 01/26/21 03:00 06:01 08:20 Temp 97.7 97.7 Pulse 70 Resp 18 20 B/P (MAP) 110/42 (64) Pulse Ox 92 92 O2 Delivery Room Air Nasal Cannula Nasal Cannula O2 Flow Rate 2.0 2.0 2.0 Justifications for Admission Abdominal Pain Indications Is patient in severe pain?: Yes Justification for admission: Patient has severe pain that requires (parenteral analgesic-please state analgesics and route) at least every 4 hours necessitating inpatient level of care. Is NPO status required?: Yes Justification for admission: Patient may require to be NPO for greater 24hours making it medically necessary to manage patient as inpatient. Other Justification Nutrition Consultation Dietary Evaluation: Recommendations by RD: Dietary education by RD, Increase Calorie Intake, PPN/TPN Comments: PPN @ 75ml/hr REC advance diet as tolerated when able. Expected Outcomes/Goals: advance to PO diet Malnutrition Findings: Food and Nutrition Intake (Sev: <50% est energy req 5days Body Fat Depletion (Non Severe: Mod to Severe Weight Status: Underweight AMANDA GALDAMEZ MD Jan 26, 2021 09:02
--- NOTE | 2021-01-26 09:05 | NUR ---
Pt. back from sx.
[2021-01-26] MEDS ORDERED: CONTRAST GIVEN. MC PRN (09:30)
[2021-01-26] MEDS ORDERED: IOHEXOL 300 MG/ML 100ML VIAL. PO ONE (09:30)
[2021-01-26 11:00] VITALS: BP 137/54
[2021-01-26] MEDS: DRONABINOL 2.5 MG CAPSULE. PO SCH ×2 (11:30→16:16)
--- NOTE | 2021-01-26 11:46 | PDOC ---
[facility] PROGRESS NOTE Date of Service DOS: DATE: 01/26/21 TIME: 11:22 Chief Complaint Chief Complaint Acute abdominal pain due to small bowel obstruction, failed NG tube placement Prerenal azotemia Elevated alkaline phosphatase Severe protein malnutrition, BMI of 14 History of breast cancer status postmastectomy and currently on chemotherapy Failure to thrive History of COPD History of HIV Admit to medicine for further management General surgery consult Continue IV fluids Advance diet as tolerated IV pain control Lovenox for DVT prophylaxis Protonix GI prophylaxis ADA diet Full code Discussed with RN and SW Disposition pending surgical evaluation Surrogate decision maker is the History of Present Illness History of Present Illness 01/26/21 No acute events. Improvement in abdominal x-ray will advance diet per surgery. Serial abdominal exams. Patient's chart, labs, images were reviewed and discussed with RN 01/25/2021 No acute events overnight. Patient seen this morning still having some nausea and actually vomited after I left. Her abdomen is distended and there is some upper quadrant tenderness. Patient will need to have her NG tube replaced as she is not having any flatus or bowel movement since her admission. Patient's chart, labs, images were reviewed and discussed with RN 01/24- discussed plan with staff- adding IV nutrition. Pt is plesent and wants to eat, and drink coffee. Spoke with pt about nothing by mouth for now, till obstruction (N/V) dissipates. Last chemo treatment for breast cancer was Thursday (01/21) at , pt happy as the mass has shrunk by 50%. Admits to previous abdominal surgery to repair an ulcer and possibility of adhesions. Consulting ID for HIV management. 70 year old female with a history of open hysterectomy years ago, bowel r esection, hypertension, HIV, anxiety, COPD current smoker, breast cancer currently on chemo every 3 weeks last treatment 3 weeks ago presenting to the ED today complaining of 10 out of 10 bilateral upper abdominal pain with nausea and vomiting, symptoms began yesterday around 4 PM. Patient denies any fever. Describes the pain as cramping and intermittent but has gotten worse this morning. Denies any hematemesis. Denies any diarrhea. Denies anything specifically relieving the pain. Vitals/I&O Vitals/I&O: Vital Signs Date Time Temp Pulse Resp B/P (MAP) Pulse Ox O2 Delivery O2 Flow Rate FiO2 01/26/21 08:20 Nasal Cannula 2.0 01/26/21 06:01 20 92 01/26/21 03:00 97.7 70 110/42 (64) 97.7 Physical Exam Physical Exam: GENERAL: Alert, oriented x 3 female, lying in bed comfortably, in mild distress from nausea, cooperative. HEENT: Normocephalic, atraumatic, anicteric. No thrush. NECK: Supple. LUNGS: Decreased breath sounds at the bases. HEART: S1, S2. No gallops or murmurs. ABDOMEN: Soft, distended. Midline scar present. Mildly tender. EXTREMITIES: No edema, no cyanosis, no clubbing. DERMATOLOGIC: Warm and dry. No generalized rash. NEUROLOGIC: Alert, oriented x 3, grossly nonfocal. PSYCHIATRIC: Cooperative. General: Alert, Oriented X3 Heart: Regular rate Lungs: Clear Abdomen: Soft (nontender) Extremities: No clubbing, No cyanosis Skin: No rashes, No breakdown Assessment and Plan Assessmemt and Plan Problems Medical Problems: (1) Abdominal pain Status: Acute (2) Nausea and vomiting Status: Acute (3) Person under investigation for COVID-19 Status: Acute (4) SBO (small bowel obstruction) Status: Acute (5) Smoking addiction Status: Acute Comment Review of Relevant I have reviewed the following items russell (where applicable) has been applied. Medications: Current Medications Medications (Trade) Dose Ordered Sig/Corey Route PRN Reason Start Time Stop Time Status Last Admin Dose Admin Benzocaine (Hurricaine One) 1 spray 1X ONCE MM 01/25/21 12:00 01/25/21 12:01 DC 01/25/21 12:00 Iohexol (Omnipaque 300 Mg/ml) 400 ml 1X ONCE PO 01/26/21 09:30 01/26/21 09:31 DC 01/26/21 10:00 Justifications for Admission Abdominal Pain Indications Is patient in severe pain?: Yes Justification for admission: Patient has severe pain that requires (parenteral analgesic-please state analgesics and route) at least every 4 hours necessitating inpatient level of care. Is NPO status required?: Yes Justification for admission: Patient may require to be NPO for greater 24hours making it medically necessary to manage patient as inpatient. Other Justification DONNA MAHARAJ MD Jan 26, 2021 11:46
--- NOTE | 2021-01-26 13:34 | RAD ---
Small bowel follow-through INDICATION: Small bowel obstruction COMPARISON: Abdomen and pelvis CT of 01/23/2021, single AP view abdomen x-ray of 01/25/2021 and acute a bdominal series of earlier the same day on 01/26/2021 FINDINGS: The earlier same day abdominal radiograph which serves as a consumer marketing specialist image for this small bowel series s hows interval increase in bowel gas in the large bowel and decrease in bowel gas in the small bowel, suggesting some radiographic improvement in findings of small bowel obstruction noted previously. With administration of oral contrast on this examination, multiple distended small bowel loops were a gain identified but within 45 minutes of oral contrast administration, enteric contrast material was is seen opacifying the large bowel down to the distal descending colon. After an hour and 45 minutes, further opacification of the distal large bowel was observed but there was still some gas-filled dis tended small bowel loops in the midabdomen. No free air. No pneumatosis. No evidence of portal venous gas. No fluoroscopic images were acquired during this examination. IMPRESSION: Gas-filled distended small bowel loops are present but do not reflect a high-grade mechanical bowel o bstruction based on the prompt transit of enteric contrast through the small and large bowel as descr ibed. No findings of bowel perforation. Electronically signed by: Luigi Rosado MD (01/26/2021 1:32 PM) [facility] [place]
[2021-01-26 15:00] VITALS: BP 128/62
[2021-01-26] MEDS: ENOXAPARIN 30 MG/0.3 ML SYRINGE. SQ SCH (16:27)
[2021-01-26 19:00] VITALS: BP 122/62
[2021-01-26] MEDS: MIRTAZAPINE 15 MG TABLET PO SCH (20:16)
[2021-01-26 23:00] VITALS: BP 131/66
[2021-01-27] MEDS: AMINO AC 3%/ELECTROLYTE/GLYCER 1,000 ML IV SCH ×2 (01:58→17:37)
[2021-01-27 03:00] VITALS: BP 124/58
[2021-01-27] MEDS: ONDANSETRON PF 4 MG/2 ML VIAL. IVP PRN ×2 (03:43→09:23)
[2021-01-27 07:00] VITALS: BP 133/74
[2021-01-27] MEDS ORDERED: NEOSTIGMINE METHYLSULFATE 5 MG/5 ML SYRINGE. ONE (07:03)
[2021-01-27] MEDS ORDERED: GLYCOPYRROLATE 1 MG/5 ML VIAL. ONE (07:03)
--- NOTE | 2021-01-27 07:52 | PDOC ---
PROGRESS NOTES Date of Service DATE: 01/27/21 TIME: 07:52 Subjective Subjective doing better, multiple stools Objective Objective Vital Signs Date Time Temp Pulse Resp B/P (MAP) Pulse Ox O2 Delivery O2 Flow Rate FiO2 01/27/21 03:00 98.3 60 18 124/58 (80) 99 Nasal Cannula 2.0 98.3 Intake and Output 01/27/21 07:00 Intake Total 5100 ml Balance 5100 ml Intake Oral 100 ml IV Total 5000 ml # Voids 5 # Bowel Movements 3 Physical Exam Abdomen: Soft, No tenderness Heart: Normal S1 Extremities: No clubbing, No cyanosis General: Alert, Oriented X3 Lungs: Clear to auscultation Neuro: Normal speech Assessment Assessment Problems Medical Problems: (1) Abdominal pain Status: Acute (2) Nausea and vomiting Status: Acute (3) Person under investigation for COVID-19 Status: Acute (4) SBO (small bowel obstruction) Status: Acute (5) Smoking addiction Status: Acute Plan Plan of Care advance diet Comment Review of Relevant I have reviewed the following items russell (where applicable) has been applied. Medications Current Medications Sodium Chloride 1,000 ml @ 1,000 mls/hr 1X ONCE IV Last administered on 01/23/21at 13:17; Start 01/23/21 at 12:30; Stop 01/24/21 at 09:56; Status DC Ondansetron HCl (Zofran) 4 mg 1X ONCE IVP Last administered on 01/23/21at 13:17; Start 01/23/21 at 12:30; Stop 01/23/21 at 12:31; Status DC Famotidine (Pepcid Vial) 20 mg 1X ONCE IVP Last administered on 01/23/21at 13:17; Start 01/23/21 at 12:30; Stop 01/23/21 at 12:31; Status DC Morphine Sulfate (Morphine Sulfate) 4 mg PRN Q15MIN PRN IV/SQ PAIN GREATER THAN 3/10 Last administered on 01/23/21at 14:47; Start 01/23/21 at 12:30; Stop 01/24/21 at 12:29; Status DC Iohexol (Omnipaque 300 Mg/ml) 75 ml 1X ONCE IV Last administered on 01/23/21at 13:41; Start 01/23/21 at 13:30; Stop 01/23/21 at 13:31; Status DC Info (CONTRAST GIVEN -- Rx MONITORING) 1 each PRN DAILY PRN MC SEE COMMENTS; Start 01/23/21 at 13:30; Stop 01/25/21 at 08:48; Status DC Ondansetron HCl (Zofran) 4 mg PRN Q8HRS PRN IV NAUSEA/VOMITING; Start 01/23/21 at 14:30; Stop 01/24/21 at 12:40; Status DC Morphine Sulfate (Morphine Sulfate) 4 mg PRN Q2HR PRN IV PAIN Last administered on 01/24/21at 03:36; Start 01/23/21 at 14:30; Stop 01/24/21 at 12:40; Status DC Sodium Chloride 1,000 ml @ 125 mls/hr 1X ONCE IV Last administered on 01/23/21at 15:14; Start 01/23/21 at 14:30; Stop 01/24/21 at 09:56; Status DC Sennosides (Senna) 17.2 mg PRN BID PRN PO CONSTIPATION; Start 01/23/21 at 15:30 Docusate Sodium (Colace) 100 mg PRN DAILY PRN PO HARD STOOLS; Start 01/23/21 at 15:30 Ondansetron HCl (Zofran) 4 mg PRN Q6HRS PRN IVP NAUSEA/VOMITING Last administered on 01/27/21at 03:43; Start 01/23/21 at 15:30 Dextrose (Dextrose 50%-Water Syringe) 12.5 gm PRN Q15MIN PRN IV SEE COMMENTS; Start 01/23/21 at 15:30 Sodium Chloride 1,000 ml @ 100 mls/hr Q10H IV Last administered on 01/23/21at 23:09; Start 01/23/21 at 15:30; Stop 01/24/21 at 09:56; Status DC Acetaminophen (Tylenol) 650 mg PRN Q4HRS PRN PO TEMP OVER 100.4F OR MILD PAIN; Start 01/23/21 at 15:30 Enoxaparin Sodium (Lovenox 30mg Syringe) 30 mg Q24H SQ Last administered on 01/26/21at 16:27; Start 01/23/21 at 16:00 Pantoprazole Sodium (PROTONIX VIAL for IV PUSH) 40 mg DAILYAC IVP Last administered on 01/26/21at 06:01; Start 01/23/21 at 16:30 Morphine Sulfate (Morphine Sulfate) 1 mg PRN Q1HR PRN IV MILD PAIN 1-3; Start 01/23/21 at 15:30 Morphine Sulfate (Morphine Sulfate) 2 mg PRN Q2HR PRN IVP SEVERE PAIN 7-10 Last administered on 01/26/21at 22:08; Start 01/23/21 at 15:45 Amino Acids/ Glycerin/ Electrolytes 1,000 ml @ 75 mls/hr [id number] IV Last administered on 01/27/21at 01:58; Start 01/24/21 at 09:45 Dronabinol (Marinol) 2.5 mg BIDACLD PO ; Start 01/24/21 at 11:30 Hydroxyzine HCl (Atarax) 10 mg PRN Q6HRS PRN PO ITCHING; Start 01/24/21 at 11:15 Mirtazapine (Remeron) 30 mg QHS PO ; Start 01/24/21 at 21:00 Lidocaine HCl (Glydo (Lidocaine) Jelly) 1 valencia 1X ONCE MM Last administered on 01/24/21at 14:02; Start 01/24/21 at 13:45; Stop 01/24/21 at 13:46; Status DC Iohexol (Omnipaque 300 Mg/ml) 400 ml 1X ONCE PO ; Start 01/25/21 at 08:45; Stop 01/25/21 at 08:48; Status DC Info (CONTRAST GIVEN -- Rx MONITORING) 1 each PRN DAILY PRN MC SEE COMMENTS; Start 01/25/21 at 09:00; Stop 01/26/21 at 13:41; Status DC Benzocaine (Hurricaine One) 1 spray 1X ONCE MM Last administered on 01/25/21at 12:00; Start 01/25/21 at 12:00; Stop 01/25/21 at 12:01; Status DC Lidocaine HCl (Xylocaine 2% Topical 5gm Tube) 1 valencia 1X ONCE TP ; Start 01/25/21 at 13:30; Stop 01/25/21 at 13:31; Status DC Iohexol (Omnipaque 300 Mg/ml) 200 ml 1X ONCE PO ; Start 01/25/21 at 14:00; Stop 01/25/21 at 14:01; Status DC Iohexol (Omnipaque 300 Mg/ml) 200 ml 1X ONCE PO ; Start 01/25/21 at 14:00; Stop 01/25/21 at 14:01; Status DC Info (CONTRAST GIVEN -- Rx MONITORING) 1 each PRN DAILY PRN MC SEE COMMENTS; Start 01/25/21 at 14:00; Stop 01/26/21 at 13:41; Status DC Lidocaine HCl (Glydo (Lidocaine) Jelly) 1 valencia 1X ONCE MM ; Start 01/25/21 at 15:15; Stop 01/25/21 at 15:16; Status DC Fentanyl Citrate (Fentanyl 2ml Vial) 25 mcg PRN Q5MIN PRN IVP MILD PAIN 1-3; Start 01/26/21 at 06:00; Stop 01/26/21 at 19:00; Status DC Fentanyl Citrate (Fentanyl 2ml Vial) 50 mcg PRN Q5MIN PRN IVP MODERATE PAIN 4- 6; Start 01/26/21 at 06:00; Stop 01/26/21 at 19:00; Status DC Morphine Sulfate (Morphine Sulfate) 1 mg PRN Q10MIN PRN IVP SEVERE PAIN 7-10; Start 01/26/21 at 06:00; Stop 01/26/21 at 19:00; Status DC Ringer's Solution 1,000 ml @ 30 mls/hr Q24H IV ; Start 01/26/21 at 06:00; Stop 01/26/21 at 17:59; Status DC Hydromorphone HCl (Dilaudid) 0.5 mg PRN Q10MIN PRN IVP SEVERE PAIN 7-10, 2nd CHOICE; Start 01/26/21 at 06:00; Stop 01/26/21 at 19:00; Status DC Prochlorperazine Edisylate (Compazine) 5 mg PACU PRN PRN IVP NAUSEA, MRX1; Start 01/26/21 at 06:00; Stop 01/26/21 at 19:00; Status DC Propofol (Diprivan) 200 mg STK-MED ONCE IV ; Start 01/26/21 at 07:01; Stop 01/26/21 at 07:01; Status DC Lidocaine HCl (Lidocaine Pf 2% Vial) 5 ml STK-MED ONCE .ROUTE ; Start 01/26/21 at 07:01; Stop 01/26/21 at 07:01; Status DC Dexamethasone Sodium Phosphate (Decadron) 20 mg STK-MED ONCE .ROUTE ; Start 01/26/21 at 07:01; Stop 01/26/21 at 07:01; Status DC Ondansetron HCl (Zofran) 4 mg STK-MED ONCE .ROUTE ; Start 01/26/21 at 07:01; Stop 01/26/21 at 07:01; Status DC Phenylephrine HCl (PHENYLEPHRINE in 0.9% NACL PF) 1 mg STK-MED ONCE IV ; Start 01/26/21 at 07:01; Stop 01/26/21 at 07:01; Status DC Rocuronium [place] (Zemuron) 50 mg STK-MED ONCE .ROUTE ; Start 01/26/21 at 07:02; Stop 01/26/21 at 07:02; Status DC Fentanyl Citrate (Fentanyl 2ml Vial) 100 mcg STK-MED ONCE .ROUTE ; Start 01/26/21 at 08:09; Stop 01/26/21 at 08:09; Status DC Succinylcholine Chloride (Anectine) 200 mg STK-MED ONCE .ROUTE ; Start 01/26/21 at 08:09; Stop 01/26/21 at 08:09; Status DC Iohexol (Omnipaque 300 Mg/ml) 400 ml 1X ONCE PO Last administered on 01/26/21at 10:00; Start 01/26/21 at 09:30; Stop 01/26/21 at 09:31; Status DC Info (CONTRAST GIVEN -- Rx MONITORING) 1 each PRN DAILY PRN MC SEE COMMENTS; Start 01/26/21 at 09:30; Stop 01/28/21 at 09:29 Neostigmine [place] (Neostigmine Methylsulfate) 5 mg STK-MED ONCE .ROUTE ; Start 01/27/21 at 07:03; Stop 01/27/21 at 07:03; Status DC Glycopyrrolate (Robinul) 1 mg STK-MED ONCE .ROUTE ; Start 01/27/21 at 07:03; Stop 01/27/21 at 07:03; Status DC Vitals/I & O Vital Sign - Last 24 Hours 01/26/21 01/26/21 01/26/21 01/26/21 08:20 11:00 13:10 13:48 Temp 97.9 97.9 Pulse 72 Resp 16 B/P (MAP) 137/54 (81) Pulse Ox 93 O2 Delivery Nasal Cannula Nasal Cannula Nasal Cannula Nasal Cannula O2 Flow Rate 2.0 2.0 3.0 3.0 01/26/21 01/26/21 01/26/21 01/26/21 15:00 19:00 20:00 22:08 Temp 98.0 98.2 98.0 98.2 Pulse 62 61 Resp 18 18 16 B/P (MAP) 128/62 (84) 122/62 (82) Pulse Ox 99 91 91 O2 Delivery Room Air Nasal Cannula Nasal Cannula Nasal Cannula O2 Flow Rate 2.0 3.0 2.0 01/26/21 01/26/21 01/27/21 22:57 23:00 03:00 Temp 97.7 98.3 97.7 98.3 Pulse 61 60 Resp 15 18 18 B/P (MAP) 131/66 (87) 124/58 (80) Pulse Ox 91 93 99 O2 Delivery Nasal Cannula Nasal Cannula Nasal Cannula O2 Flow Rate 2.0 2.0 2.0 Intake and Output 01/26/21 01/26/21 01/27/21 15:00 23:00 07:00 Intake Total 50 ml 5050 ml Balance 50 ml 5050 ml Justifications for Admission Abdominal Pain Indications Is patient in severe pain?: Yes Justification for admission: Patient has severe pain that requires (parenteral analgesic-please state analgesics and route) at least every 4 hours necessitating inpatient level of care. Is NPO status required?: Yes Justification for admission: Patient may require to be NPO for greater 24hours making it medically necessary to manage patient as inpatient. Other Justification Nutrition Consultation Dietary Evaluation: Recommendations by RD: Dietary education by RD, Increase Calorie Intake, PPN /TPN Comments: PPN @ 75ml/hr REC advance diet as tolerated when able. Expected Outcomes/Goals: advance to PO diet Malnutrition Findings: Food and Nutrition Intake (Sev: <50% est energy req 5days Body Fat Depletion (Non Severe: Mod to Severe Weight Status: Underweight AMANDA GALDAMEZ MD Jan 27, 2021 07:52
[2021-01-27] MEDS: PANTOPRAZOLE IV PUSH 40 MG VIAL. IVP SCH (09:23)
--- NOTE | 2021-01-27 09:24 | PDOC ---
Infectious Disease Note Subjective: Subjective Patient continues to have dry heaves No vomiting Abdominal pain is improving Denies any fevers or chills Vital Signs: Vital Signs Vital Signs Date Time Temp Pulse Resp B/P (MAP) Pulse Ox O2 Delivery O2 Flow Rate FiO2 01/27/21 07:00 98.2 63 18 133/74 (93) 97 Nasal Cannula 1.0 98.2 Physical Exam: PHYSICAL EXAM GENERAL: Alert, oriented x 3 female, lying in bed comfortably, in mild distress from nausea, cooperative. HEENT: Normocephalic, atraumatic, anicteric. No thrush. NECK: Supple. LUNGS: Decreased breath sounds at the bases. HEART: S1, S2. No gallops or murmurs. ABDOMEN: Soft, distended. Midline scar present. Mildly tender. EXTREMITIES: No edema, no cyanosis, no clubbing. DERMATOLOGIC: Warm and dry. No generalized rash. NEUROLOGIC: Alert, oriented x 3, grossly nonfocal. PSYCHIATRIC: Cooperative. Medications: Inpatient Meds: Medications reviewed. Objective: Assessment: 1. HIV, stable per the patient report ,on Atripla for the last 10 years, follows up at with DR Wood. Per patient's report, last HIV viral load was non-detectable. CD4 stable. 2. Abdominal pain from SBO 3. Nausea and vomiting. 4. Small-bowel obstruction. 5. History of breast cancer on Chemotherapy. 6. Immunosuppression. 7. Chronic obstructive pulmonary disease changes. 8. History of smoking. 9. Anemia. Plan: Plan of Care 1. Hold Atripla for now due to NPO status. 2. Bowel rest and further management of SBO per General Surgery. 3. Follow up labs and cultures. 4. Maintain aspiration precaution. 5. Continue supportive care. TAMMY BLACKWELL MD Jan 27, 2021 09:24
--- NOTE | 2021-01-27 10:00 | PDOC ---
[facility] PROGRESS NOTE Date of Service DOS: DATE: 01/27/21 TIME: 09:59 Chief Complaint Chief Complaint Acute abdominal pain due to small bowel obstruction, failed NG tube placement Prerenal azotemia Elevated alkaline phosphatase Severe protein malnutrition, BMI of 14 History of breast cancer status postmastectomy and currently on chemotherapy Failure to thrive History of COPD History of HIV Admit to medicine for further management General surgery consult Continue IV fluids Advance diet as tolerated IV pain control Lovenox for DVT prophylaxis Protonix GI prophylaxis ADA diet Full code Discussed with RN and SW Disposition pending surgical evaluation Surrogate decision maker is the History of Present Illness History of Present Illness 01/27/2021 No acute events overnight. Tolerating clear liquid diet with some gagging. Patient denies nausea but she appears to be nauseous at times per nursing. Patient's chart, labs, images were reviewed and discussed with RN 01/26/21 No acute events. Improvement in abdominal x-ray will advance diet per surgery. Serial abdominal exams. Patient's chart, labs, images were reviewed and discussed with RN 01/25/2021 No acute events overnight. Patient seen this morning still having some nausea and actually vomited after I left. Her abdomen is distended and there is some upper quadrant tenderness. Patient will need to have her NG tube replaced as she is not having any flatus or bowel movement since her admission. Patient's chart, labs, images were reviewed and discussed with RN 01/24- discussed plan with staff- adding IV nutrition. Pt is plesent and wants to eat, and drink coffee. Spoke with pt about nothing by mouth for now, till obstruction (N/V) dissipates. Last chemo treatment for breast cancer was Thursday (01/21) at , pt happy as the mass has shrunk by 50%. Admits to previous abdominal surgery to repair an ulcer and possibility of adhesions. Consulting ID for HIV management. 70 year old female with a history of open hysterectomy years ago, bowel resection, hypertension, HIV, anxiety, COPD current smoker, breast cancer currently on chemo every 3 weeks last treatment 3 weeks ago presenting to the ED today complaining of 10 out of 10 bilateral upper abdominal pain with nausea and vomiting, symptoms began yesterday around 4 PM. Patient denies any fever. Describes the pain as cramping and intermittent but has gotten worse this morning. Denies any hematemesis. Denies any diarrhea. Denies anything specifically relieving the pain. Vitals/I&O Vitals/I&O: Vital Signs Date Time Temp Pulse Resp B/P (MAP) Pulse Ox O2 Delivery O2 Flow Rate FiO2 01/27/21 07:00 98.2 63 18 133/74 (93) 97 Nasal Cannula 1.0 98.2 I & O 01/26/21 01/26/21 01/27/21 15:00 23:00 07:00 Intake Total 50 ml 5050 ml Balance 50 ml 5050 ml Physical Exam Physical Exam: GENERAL: Alert, oriented x 3 female, lying in bed comfortably, in mild distress from nausea, cooperative. HEENT: Normocephalic, atraumatic, anicteric. No thrush. NECK: Supple. LUNGS: Decreased breath sounds at the bases. HEART: S1, S2. No gallops or murmurs. ABDOMEN: Soft, distended. Midline scar present. Mildly tender. EXTREMITIES: No edema, no cyanosis, no clubbing. DERMATOLOGIC: Warm and dry. No generalized rash. NEUROLOGIC: Alert, oriented x 3, grossly nonfocal. PSYCHIATRIC: Cooperative. General: Alert, Oriented X3 Heart: Normal S1 Lungs: Clear Abdomen: Soft, No tenderness Extremities: No clubbing, No cyanosis Skin: No rashes, No breakdown Assessment and Plan Assessmemt and Plan Problems Medical Problems: (1) Abdominal pain Status: Acute (2) Nausea and vomiting Status: Acute (3) Person under investigation for COVID-19 Status: Acute (4) SBO (small bowel obstruction) Status: Acute (5) Smoking addiction Status: Acute Comment Review of Relevant I have reviewed the following items russell (where applicable) has been applied. Justifications for Admission Abdominal Pain Indications Is patient in severe pain?: Yes Justification for admission: Patient has severe pain that requires (parenteral analgesic-please state analgesics and route) at least every 4 hours necessitating inpatient level of care. Is NPO status required?: Yes Justification for admission: Patient may require to be NPO for greater 24hours making it medically necessary to manage patient as inpatient. Other Justification DONNA MAHARAJ MD Jan 27, 2021 10:00
[2021-01-27 11:00] VITALS: BP 126/76
[2021-01-27] MEDS: DRONABINOL 2.5 MG CAPSULE. PO SCH ×2 (12:42→17:39)
[2021-01-27 15:00] VITALS: BP 97/64
[2021-01-27] MEDS: ENOXAPARIN 30 MG/0.3 ML SYRINGE. SQ SCH (17:39)
[2021-01-27] MEDS: MORPHINE SULFATE 2 MG/ML VIAL. IVP PRN (17:45)
[2021-01-27 19:00] VITALS: BP 105/51
[2021-01-27] MEDS: MIRTAZAPINE 15 MG TABLET PO SCH (20:41)
[2021-01-27 23:00] VITALS: BP 137/69
[2021-01-28 03:00] VITALS: BP 135/58
[2021-01-28] MEDS: AMINO AC 3%/ELECTROLYTE/GLYCER 1,000 ML IV SCH ×2 (04:40→21:31)
[2021-01-28] MEDS: ONDANSETRON PF 4 MG/2 ML VIAL. IVP PRN ×2 (04:40→18:46)
[2021-01-28 07:18] VITALS: BP 115/61
--- NOTE | 2021-01-28 07:32 | PDOC ---
[facility] PROGRESS NOTE Date of Service DOS: DATE: 01/28/21 TIME: 07:30 Chief Complaint Chief Complaint Acute abdominal pain due to small bowel obstruction, failed NG tube placement Prerenal azotemia Elevated alkaline phosphatase Severe protein malnutrition, BMI of 14 History of breast cancer status postmastectomy and currently on chemotherapy Failure to thrive History of COPD History of HIV Admit to medicine for further management General surgery consult Continue IV fluids Advance diet as tolerated IV pain control Lovenox for DVT prophylaxis Protonix GI prophylaxis ADA diet Full code Discussed with RN and SW Disposition pending surgical evaluation Surrogate decision maker is the History of Present Illness History of Present Illness 01/28/2021 Afebrile, no acute vents overnight. She is passing flatus and tolerating her liquid diet. Will continue to advance as tolerated. She is agreeable to home health upon discharge when ready. 01/27/2021 No acute events overnight. Tolerating clear liquid diet with some gagging. Patient denies nausea but she appears to be nauseous at times per nursing. Patient's chart, labs, images were reviewed and discussed with RN 01/26/21 No acute events. Improvement in abdominal x-ray will advance diet per surgery. Serial abdominal exams. Patient's chart, labs, images were reviewed and discussed with RN 01/25/2021 No acute events overnight. Patient seen this morning still having some nausea and actually vomited after I left. Her abdomen is distended and there is some upper quadrant tenderness. Patient will need to have her NG tube replaced as she is not having any flatus or bowel movement since her admission. Patient's chart, labs, images were reviewed and discussed with RN 01/24- discussed plan with staff- adding IV nutrition. Pt is plesent and wants to eat, and drink coffee. Spoke with pt about nothing by mouth for now, till obstruction (N/V) dissipates. Last chemo treatment for breast cancer was Thursday (01/21) at , pt happy as the mass has shrunk by 50%. Admits to previous abd ominal surgery to repair an ulcer and possibility of adhesions. Consulting ID for HIV management. 70 year old female with a history of open hysterectomy years ago, bowel resection, hypertension, HIV, anxiety, COPD current smoker, breast cancer currently on chemo every 3 weeks last treatment 3 weeks ago presenting to the ED today complaining of 10 out of 10 bilateral upper abdominal pain with nausea and vomiting, symptoms began yesterday around 4 PM. Patient denies any fever. Describes the pain as cramping and intermittent but has gotten worse this morning. Denies any hematemesis. Denies any diarrhea. Denies anything specifically relieving the pain. Vitals/I&O Vitals/I&O: Vital Signs Date Time Temp Pulse Resp B/P (MAP) Pulse Ox O2 Delivery O2 Flow Rate FiO2 01/28/21 07:18 98.5 52 18 115/61 (79) 99 Nasal Cannula 2.0 98.5 I & O 01/27/21 01/27/21 01/28/21 15:00 23:00 07:00 Intake Total 720 ml 1000 ml 240 ml Output Total 400 ml Balance 320 ml 1000 ml 240 ml Physical Exam Physical Exam: GENERAL: Alert, oriented x 3 female, lying in bed comfortably, in mild distress from nausea, cooperative. HEENT: Normocephalic, atraumatic, anicteric. No thrush. NECK: Supple. LUNGS: Decreased breath sounds at the bases. HEART: S1, S2. No gallops or murmurs. ABDOMEN: Soft, distended. Midline scar present. Mildly tender. EXTREMITIES: No edema, no cyanosis, no clubbing. DERMATOLOGIC: Warm and dry. No generalized rash. NEUROLOGIC: Alert, oriented x 3, grossly nonfocal. PSYCHIATRIC: Cooperative. General: Alert, Oriented X3 Heart: Normal S1 Lungs: Clear Abdomen: Soft, No tenderness Extremities: No clubbing, No cyanosis Skin: No rashes, No breakdown Assessment and Plan Assessmemt and Plan Problems Medical Problems: (1) Abdominal pain Status: Acute (2) Nausea and vomiting Status: Acute (3) Person under investigation for COVID-19 Status: Acute (4) SBO (small bowel obstruction) Status: Acute (5) Smoking addiction Status: Acute Comment Review of Relevant I have reviewed the following items russell (where applicable) has been applied. Justifications for Admission Abdominal Pain Indications Is patient in severe pain?: Yes Justification for admission: Patient has severe pain that requires (parenteral analgesic-please state analgesics and route) at least every 4 hours necessitating inpatient level of care. Is NPO status required?: Yes Justification for admission: Patient may require to be NPO for greater 24hours making it medically necessary to manage patient as inpatient. Other Justification SP SANDHU MD Jan 28, 2021 07:32
[2021-01-28] MEDS: PANTOPRAZOLE IV PUSH 40 MG VIAL. IVP SCH (08:13)
[2021-01-28] MEDS: MORPHINE SULFATE 2 MG/ML VIAL. IVP PRN (08:13)
--- NOTE | 2021-01-28 09:20 | PDOC ---
Infectious Disease Note Subjective Subjective Patient continues to have some nausea No vomiting Abdominal pain is improving Denies any fevers or chills ROS ROS as above Vital Sign Vital Signs Vital Signs Date Time Temp Pulse Resp B/P (MAP) Pulse Ox O2 Delivery O2 Flow Rate FiO2 01/28/21 08:50 Nasal Cannula 3.0 01/28/21 07:18 98.5 52 18 115/61 (79) 99 98.5 Physical Exam PHYSICAL EXAM GENERAL: Alert, oriented x 3 female, lying in bed comfortably, in mild distress from nausea, cooperative. HEENT: Normocephalic, atraumatic, anicteric. No thrush. NECK: Supple. LUNGS: Decreased breath sounds at the bases. HEART: S1, S2. No gallops or murmurs. ABDOMEN: Soft, distended. Midline scar present. Mildly tender. EXTREMITIES: No edema, no cyanosis, no clubbing. DERMATOLOGIC: Warm and dry. No generalized rash. NEUROLOGIC: Alert, oriented x 3, grossly nonfocal. PSYCHIATRIC: Cooperative. Objective Assessment 1. HIV, stable per the patient report ,on Atripla for the last 10 years, follows up at with DR Wood. Per patient's report, last HIV viral load was non-detectable. CD4 stable. 2. Abdominal pain from SBO 3. Nausea and vomiting. 4. Small-bowel obstruction. 5. History of breast cancer on Chemotherapy. 6. Immunosuppression. 7. Chronic obstructive pulmonary disease changes. 8. History of smoking. 9. Anemia. Plan Plan of Care 1. Atripla , pt is talking po meds now 2. Bowel rest and further management of SBO per General Surgery. 3. Follow up labs and cultures. 4. Maintain aspiration precaution. 5. Continue supportive care. VERONIKA BLACKWELL MD Jan 28, 2021 09:20
[2021-01-28 10:31] VITALS: BP 110/56
[2021-01-28] MEDS: DRONABINOL 2.5 MG CAPSULE. PO SCH ×2 (11:43→16:24)
--- NOTE | 2021-01-28 13:17 | PDOC ---
PROGRESS NOTES Date of Service DATE: 01/28/21 TIME: 13:16 Subjective Subjective feels well, states she's taking po well, no pain, having stools Objective Objective Vital Signs Date Time Temp Pulse Resp B/P (MAP) Pulse Ox O2 Delivery O2 Flow Rate FiO2 01/28/21 10:31 98.1 65 18 110/56 (74) 92 Nasal Cannula 2.0 98.1 Intake and Output 01/28/21 07:00 Intake Total 1960 ml Output Total 400 ml Balance 1560 ml Intake Oral 960 ml IV Total 1000 ml Output Urine Total 400 ml Stool Total 0 ml # Voids 3 # Bowel Movements 1 Physical Exam Abdomen: Soft, No tenderness Heart: Regular rate Extremities: No clubbing, No cyanosis General: Alert, Oriented X3 Assessment Assessment Problems Medical Problems: (1) Abdominal pain Status: Acute (2) Nausea and vomiting Status: Acute (3) Person under investigation for COVID-19 Status: Acute (4) SBO (small bowel obstruction) Status: Acute (5) Smoking addiction Status: Acute Plan Plan of Care SBO, resolved; advance diet; DC planning per primary service, I will sign off Comment Review of Relevant I have reviewed the following items russell (where applicable) has been applied. Medications Current Medications Sodium Chloride 1,000 ml @ 1,000 mls/hr 1X ONCE IV Last administered on 01/23/21at 13:17; Start 01/23/21 at 12:30; Stop 01/24/21 at 09:56; Status DC Ondansetron HCl (Zofran) 4 mg 1X ONCE IVP Last administered on 01/23/21at 13:17; Start 01/23/21 at 12:30; Stop 01/23/21 at 12:31; Status DC Famotidine (Pepcid Vial) 20 mg 1X ONCE IVP Last administered on 01/23/21at 13:17; Start 01/23/21 at 12:30; Stop 01/23/21 at 12:31; Status DC Morphine Sulfate (Morphine Sulfate) 4 mg PRN Q15MIN PRN IV/SQ PAIN GREATER THAN 3/10 Last administered on 01/23/21at 14:47; Start 01/23/21 at 12:30; Stop 01/24/21 at 12:29; Status DC Iohexol (Omnipaque 300 Mg/ml) 75 ml 1X ONCE IV Last administered on 01/23/21at 13:41; Start 01/23/21 at 13:30; Stop 01/23/21 at 13:31; Status DC Info (CONTRAST GIVEN -- Rx MONITORING) 1 each PRN DAILY PRN MC SEE COMMENTS; Start 01/23/21 at 13:30; Stop 01/25/21 at 08:48; Status DC Ondansetron HCl (Zofran) 4 mg PRN Q8HRS PRN IV NAUSEA/VOMITING; Start 01/23/21 at 14:30; Stop 01/24/21 at 12:40; Status DC Morphine Sulfate (Morphine Sulfate) 4 mg PRN Q2HR PRN IV PAIN Last administered on 01/24/21at 03:36; Start 01/23/21 at 14:30; Stop 01/24/21 at 12:40; Status DC Sodium Chloride 1,000 ml @ 125 mls/hr 1X ONCE IV Last administered on 01/23/21at 15:14; Start 01/23/21 at 14:30; Stop 01/24/21 at 09:56; Status DC Sennosides (Senna) 17.2 mg PRN BID PRN PO CONSTIPATION; Start 01/23/21 at 15:30 Docusate Sodium (Colace) 100 mg PRN DAILY PRN PO HARD STOOLS; Start 01/23/21 at 15:30 Ondansetron HCl (Zofran) 4 mg PRN Q6HRS PRN IVP NAUSEA/VOMITING Last administered on 01/28/21at 04:40; Start 01/23/21 at 15:30 Dextrose (Dextrose 50%-Water Syringe) 12.5 gm PRN Q15MIN PRN IV SEE COMMENTS; Start 01/23/21 at 15:30 Sodium Chloride 1,000 ml @ 100 mls/hr Q10H IV Last administered on 01/23/21at 23:09; Start 01/23/21 at 15:30; Stop 01/24/21 at 09:56; Status DC Acetaminophen (Tylenol) 650 mg PRN Q4HRS PRN PO TEMP OVER 100.4F OR MILD PAIN; Start 01/23/21 at 15:30 Enoxaparin Sodium (Lovenox 30mg Syringe) 30 mg Q24H SQ Last administered on 01/27/21at 17:39; Start 01/23/21 at 16:00 Pantoprazole Sodium (PROTONIX VIAL for IV PUSH) 40 mg DAILYAC IVP Last administered on 01/28/21at 08:13; Start 01/23/21 at 16:30 Morphine Sulfate (Morphine Sulfate) 1 mg PRN Q1HR PRN IV MILD PAIN 1-3; Start 01/23/21 at 15:30 Morphine Sulfate (Morphine Sulfate) 2 mg PRN Q2HR PRN IVP SEVERE PAIN 7-10 Last administered on 01/28/21at 08:13; Start 01/23/21 at 15:45 Amino Acids/ Glycerin/ Electrolytes 1,000 ml @ 75 mls/hr [id number] IV Last administered on 01/28/21at 04:40; Start 01/24/21 at 09:45 Dronabinol (Marinol) 2.5 mg BIDACLD PO Last administered on 01/28/21at 11:43; Start 01/24/21 at 11:30 Hydroxyzine HCl (Atarax) 10 mg PRN Q6HRS PRN PO ITCHING; Start 01/24/21 at 11:15 Mirtazapine (Remeron) 30 mg QHS PO Last administered on 01/27/21at 20:41; Start 01/24/21 at 21:00 Lidocaine HCl (Glydo (Lidocaine) Jelly) 1 valencia 1X ONCE MM Last administered on 01/24/21at 14:02; Start 01/24/21 at 13:45; Stop 01/24/21 at 13:46; Status DC Iohexol (Omnipaque 300 Mg/ml) 400 ml 1X ONCE PO ; Start 01/25/21 at 08:45; Stop 01/25/21 at 08:48; Status DC Info (CONTRAST GIVEN -- Rx MONITORING) 1 each PRN DAILY PRN MC SEE COMMENTS; Start 01/25/21 at 09:00; Stop 01/26/21 at 13:41; Status DC Benzocaine (Hurricaine One) 1 spray 1X ONCE MM Last administered on 01/25/21at 12:00; Start 01/25/21 at 12:00; Stop 01/25/21 at 12:01; Status DC Lidocaine HCl (Xylocaine 2% Topical 5gm Tube) 1 valencia 1X ONCE TP ; Start 01/25/21 at 13:30; Stop 01/25/21 at 13:31; Status DC Iohexol (Omnipaque 300 Mg/ml) 200 ml 1X ONCE PO ; Start 01/25/21 at 14:00; Stop 01/25/21 at 14:01; Status DC Iohexol (Omnipaque 300 Mg/ml) 200 ml 1X ONCE PO ; Start 01/25/21 at 14:00; Stop 01/25/21 at 14:01; Status DC Info (CONTRAST GIVEN -- Rx MONITORING) 1 each PRN DAILY PRN MC SEE COMMENTS; Start 01/25/21 at 14:00; Stop 01/26/21 at 13:41; Status DC Lidocaine HCl (Glydo (Lidocaine) Jelly) 1 valencia 1X ONCE MM ; Start 01/25/21 at 15:15; Stop 01/25/21 at 15:16; Status DC Fentanyl Citrate (Fentanyl 2ml Vial) 25 mcg PRN Q5MIN PRN IVP MILD PAIN 1-3; Start 01/26/21 at 06:00; Stop 01/26/21 at 19:00; Status DC Fentanyl Citrate (Fentanyl 2ml Vial) 50 mcg PRN Q5MIN PRN IVP MODERATE PAIN 4- 6; Start 01/26/21 at 06:00; Stop 01/26/21 at 19:00; Status DC Morphine Sulfate (Morphine Sulfate) 1 mg PRN Q10MIN PRN IVP SEVERE PAIN 7-10; Start 01/26/21 at 06:00; Stop 01/26/21 at 19:00; Status DC Ringer's Solution 1,000 ml @ 30 mls/hr Q24H IV ; Start 01/26/21 at 06:00; Stop 01/26/21 at 17:59; Status DC Hydromorphone HCl (Dilaudid) 0.5 mg PRN Q10MIN PRN IVP SEVERE PAIN 7-10, 2nd CHOICE; Start 01/26/21 at 06:00; Stop 01/26/21 at 19:00; Status DC Prochlorperazine Edisylate (Compazine) 5 mg PACU PRN PRN IVP NAUSEA, MRX1; Start 01/26/21 at 06:00; Stop 01/26/21 at 19:00; Status DC Propofol (Diprivan) 200 mg STK-MED ONCE IV ; Start 01/26/21 at 07:01; Stop 01/26/21 at 07:01; Status DC Lidocaine HCl (Lidocaine Pf 2% Vial) 5 ml STK-MED ONCE .ROUTE ; Start 01/26/21 at 07:01; Stop 01/26/21 at 07:01; Status DC Dexamethasone Sodium Phosphate (Decadron) 20 mg STK-MED ONCE .ROUTE ; Start 01/26/21 at 07:01; Stop 01/26/21 at 07:01; Status DC Ondansetron HCl (Zofran) 4 mg STK-MED ONCE .ROUTE ; Start 01/26/21 at 07:01; Stop 01/26/21 at 07:01; Status DC Phenylephrine HCl (PHENYLEPHRINE in 0.9% NACL PF) 1 mg STK-MED ONCE IV ; Start 01/26/21 at 07:01; Stop 01/26/21 at 07:01; Status DC Rocuronium Dowell (Zemuron) 50 mg STK-MED ONCE .ROUTE ; Start 01/26/21 at 07:02; Stop 01/26/21 at 07:02; Status DC Fentanyl Citrate (Fentanyl 2ml Vial) 100 mcg STK-MED ONCE .ROUTE ; Start 01/26/21 at 08:09; Stop 01/26/21 at 08:09; Status DC Succinylcholine Chloride (Anectine) 200 mg STK-MED ONCE .ROUTE ; Start 01/26/21 at 08:09; Stop 01/26/21 at 08:09; Status DC Iohexol (Omnipaque 300 Mg/ml) 400 ml 1X ONCE PO Last administered on 01/26/21at 10:00; Start 01/26/21 at 09:30; Stop 01/26/21 at 09:31; Status DC Info (CONTRAST GIVEN -- Rx MONITORING) 1 each PRN DAILY PRN MC SEE COMMENTS; Start 01/26/21 at 09:30; Stop 01/28/21 at 09:29; Status DC Neostigmine Dowell (Neostigmine Methylsulfate) 5 mg STK-MED ONCE .ROUTE ; Start 01/27/21 at 07:03; Stop 01/27/21 at 07:03; Status DC Glycopyrrolate (Robinul) 1 mg STK-MED ONCE .ROUTE ; Start 01/27/21 at 07:03; Stop 01/27/21 at 07:03; Status DC Lorazepam (Ativan) 1 mg PRN Q6HRS PRN PO ANXIETY / AGITATION Last administered on 01/28/21at 10:40; Start 01/28/21 at 10:30 Non-Formulary Medication (Non Formulary Item) 1 ea HS PO ; Start 01/28/21 at 21:00; Status UNV Vitals/I & O Vital Sign - Last 24 Hours 01/27/21 01/27/21 01/27/21 01/27/21 15:00 17:45 18:30 19:00 Temp 98.0 98.0 98.0 98.0 Pulse 66 55 Resp 18 18 B/P (MAP) 97/64 (75) 105/51 (69) Pulse Ox 100 98 O2 Delivery Nasal Cannula Nasal Cannula Room Air Nasal Cannula O2 Flow Rate 2.0 3.0 2.0 01/27/21 01/27/21 01/28/21 01/28/21 20:00 23:00 03:00 07:18 Temp 98.3 97.5 98.5 98.3 97.5 98.5 Pulse 58 58 52 Resp 18 16 18 B/P (MAP) 137/69 (91) 135/58 (83) 115/61 (79) Pulse Ox 98 99 99 O2 Delivery Nasal Cannula Nasal Cannula Nasal Cannula Nasal Cannula O2 Flow Rate 3.0 2.0 2.0 2.0 01/28/21 01/28/21 01/28/21 01/28/21 07:30 08:13 08:50 10:31 Temp 98.1 98.1 Pulse 65 Resp 18 B/P (MAP) 110/56 (74) Pulse Ox 92 O2 Delivery Nasal Cannula Nasal Cannula Nasal Cannula Nasal Cannula O2 Flow Rate 3.0 3.0 3.0 2.0 Intake and Output 01/27/21 01/27/21 01/28/21 15:00 23:00 07:00 Intake Total 720 ml 1000 ml 240 ml Output Total 400 ml Balance 320 ml 1000 ml 240 ml Justifications for Admission Abdominal Pain Indications Is patient in severe pain?: Yes Justification for admission: Patient has severe pain that requires (parenteral analgesic-please state analgesics and route) at least every 4 hours necessitating inpatient level of care. Is NPO status required?: Yes Justification for admission: Patient may require to be NPO for greater 24hours making it medically necessary to manage patient as inpatient. Other Justification Nutrition Consultation Dietary Evaluation: Recommendations by RD: Dietary education by RD, Increase Calorie Intake, PPN/TPN Comments: PPN @ 75ml/hr REC advance diet as tolerated when able. Expected Outcomes/Goals: advance to PO diet Malnutrition Findings: Food and Nutrition Intake (Sev: <50% est energy req 5days Body Fat Depletion (Non Severe: Mod to Severe Weight Status: Underweight AMANDA GALDAMEZ MD Jan 28, 2021 13:17
[2021-01-28 15:00] VITALS: BP 97/55
[2021-01-28] MEDS: ENOXAPARIN 30 MG/0.3 ML SYRINGE. SQ SCH (16:28)
[2021-01-28 19:00] VITALS: BP 149/74
[2021-01-28] MEDS ORDERED: ATRIPLA PO SCH (21:00)
[2021-01-28] MEDS: MIRTAZAPINE 15 MG TABLET PO SCH (21:25)
[2021-01-28 23:00] VITALS: BP 118/59
[2021-01-29] MEDS: ONDANSETRON PF 4 MG/2 ML VIAL. IVP PRN ×3 (00:54→13:58)
[2021-01-29] MEDS: MORPHINE SULFATE 2 MG/ML VIAL. IVP PRN (00:55)
[2021-01-29 03:00] VITALS: BP 98/58
[2021-01-29 07:14] VITALS: BP 116/58
[2021-01-29] MEDS: PANTOPRAZOLE IV PUSH 40 MG VIAL. IVP SCH (07:19)
--- NOTE | 2021-01-29 07:55 | PDOC ---
[facility] [facility] PROGRESS NOTE Date of Service DOS: DATE: 01/29/21 TIME: 07:53 Chief Complaint Chief Complaint Acute abdominal pain due to small bowel obstruction, failed NG tube placement Prerenal azotemia Elevated alkaline phosphatase Severe protein malnutrition, BMI of 14 History of breast cancer status postmastectomy and currently on chemotherapy Failure to thrive History of COPD History of HIV Admit to medicine for further management General surgery consult Continue IV fluids Advance diet as tolerated IV pain control Lovenox for DVT prophylaxis Protonix GI prophylaxis ADA diet Full code Discussed with RN and SW Disposition pending surgical evaluation Surrogate decision maker is the History of Present Illness History of Present Illness 01/29/2021 Afebrile, breathing on 2 L nasal cannula. Tolerating regular diet well, having bowel movements. Resumed home Atripla. She is declining SNU, preferring to discharge home with home health. Greater than 30 minutes was spent managing the discharge of this patient. 01/28/2021 Afebrile, no acute vents overnight. She is passing flatus and tolerating her liquid diet. Will continue to advance as tolerated. She is agreeable to home health upon discharge when ready. 01/27/2021 No acute events overnight. Tolerating clear liquid diet with some gagging. Patient denies nausea but she appears to be nauseous at times per nursing. Patient's chart, labs, images were reviewed and discussed with RN 01/26/21 No acute events. Improvement in abdominal x-ray will advance diet per surgery. Serial abdominal exams. Patient's chart, labs, images were reviewed and discussed with RN 01/25/2021 No acute events overnight. Patient seen this morning still having some nausea and actually vomited after I left. Her abdomen is distended and there is some upper quadrant tenderness. Patient will need to have her NG tube replaced as she is not having any flatus or bowel movement since her admission. Patient's chart, labs, images were reviewed and discussed with RN 01/24- discussed plan with staff- adding IV nutrition. Pt is plesent and wants to eat, and drink coffee. Spoke with pt about nothing by mouth for now, till obstruction (N/V) dissipates. Last chemo treatment for breast cancer was Thursday (01/21) at , pt happy as the mass has shrunk by 50%. Admits to previous abdominal surgery to repair an ulcer and possibility of adhesions. Consulting ID for HIV management. 70 year old female with a history of open hysterectomy years ago, bowel resection, hypertension, HIV, anxiety, COPD current smoker, breast cancer currently on chemo every 3 weeks last treatment 3 weeks ago presenting to the ED today complaining of 10 out of 10 bilateral upper abdominal pain with nausea and vomiting, symptoms began yesterday around 4 PM. Patient denies any fever. Describes the pain as cramping and intermittent but has gotten worse this morning. Denies any hematemesis. Denies any diarrhea. Denies anything specifically relieving the pain. Vitals/I&O Vitals/I&O: Vital Signs Date Time Temp Pulse Resp B/P (MAP) Pulse Ox O2 Delivery O2 Flow Rate FiO2 01/29/21 07:14 98.6 66 18 116/58 (77) 87 Nasal Cannula 2.0 98.6 I & O 01/28/21 01/28/21 01/29/21 15:00 23:00 07:00 Intake Total 2400 ml 240 ml Output Total 250 ml Balance -250 ml 2400 ml 240 ml Physical Exam General: Alert, Oriented X3, No acute distress Heart: Regular rate Lungs: Clear Abdomen: Soft, No tenderness Extremities: No clubbing, No cyanosis Skin: No rashes, No breakdown Assessment and Plan Assessmemt and Plan Problems Medical Problems: (1) Abdominal pain Status: Acute (2) Nausea and vomiting Status: Acute (3) Person under investigation for COVID-19 Status: Acute (4) SBO (small bowel obstruction) Status: Acute (5) Smoking addiction Status: Acute Comment Review of Relevant I have reviewed the following items russell (where applicable) has been applied. Medications: Current Medications Medications (Trade) Dose Ordered Sig/Corey Route PRN Reason Start Time Stop Time Status Last Admin Dose Admin Lorazepam (Ativan) 1 mg PRN Q6HRS PRN PO ANXIETY / AGITATION 01/28/21 10:30 01/28/21 10:40 Justifications for Admission Abdominal Pain Indications Is patient in severe pain?: Yes Justification for admission: Patient has severe pain that requires (parenteral analgesic-please state analgesics and route) at least every 4 hours necessitating inpatient level of care. Is NPO status required?: Yes Justification for admission: Patient may require to be NPO for greater 24hours making it medically necessary to manage patient as inpatient. Other Justification SP SANDHU MD Jan 29, 2021 07:55
--- NOTE | 2021-01-29 08:41 | PDOC ---
Infectious Disease Note Subjective Subjective Patient continues to have some nausea No vomiting Abdominal pain is improving Denies any fevers or chills ROS ROS no headache, Vital Sign Vital Signs Vital Signs Date Time Temp Pulse Resp B/P (MAP) Pulse Ox O2 Delivery O2 Flow Rate FiO2 01/29/21 07:20 Nasal Cannula 2.0 01/29/21 07:14 98.6 66 18 116/58 (77) 87 98.6 Physical Exam PHYSICAL EXAM GENERAL: Alert, oriented x 3 female, lying in bed comfortably, in mild distress from nausea, cooperative. HEENT: Normocephalic, atraumatic, anicteric. No thrush. NECK: Supple. LUNGS: Decreased breath sounds at the bases. HEART: S1, S2. No gallops or murmurs. ABDOMEN: Soft, distended. Midline scar present. Mildly tender. EXTREMITIES: No edema, no cyanosis, no clubbing. DERMATOLOGIC: Warm and dry. No generalized rash. NEUROLOGIC: Alert, oriented x 3, grossly nonfocal. PSYCHIATRIC: Cooperative. Objective Assessment 1. HIV, stable per the patient report ,on Atripla for the last 10 years, follows up at with DR Wood. Per patient's report, last HIV viral load was non-detectable. CD4 stable. 2. Abdominal pain from SBO 3. Nausea and vomiting. 4. Small-bowel obstruction. 5. History of breast cancer on Chemotherapy. 6. Immunosuppression. 7. Chronic obstructive pulmonary disease changes. 8. History of smoking. 9. Anemia. Plan Plan of Care 1. Atripla , pt is talking po meds now 2. ensure 3 a day 3. Follow up labs and cultures. 4. Maintain aspiration precaution. 5. Continue supportive care. VERONIKA BLACKWELL MD Jan 29, 2021 08:41
[2021-01-29] MEDS: AMINO AC 3%/ELECTROLYTE/GLYCER 1,000 ML IV SCH ×2 (09:45→13:34)
[2021-01-29 10:48] VITALS: BP 94/60
[2021-01-29] MEDS: DRONABINOL 2.5 MG CAPSULE. PO SCH ×2 (11:24→16:35)
--- NOTE | 2021-01-29 12:47 | PDOC3 ---
Discharge Summary Visit Information Date of Admission: Jan 23, 2021 Date of Discharge: Jan 29, 2021 Final Diagnosis Problems Medical Problems: (1) Abdominal pain Status: Acute (2) Nausea and vomiting Status: Acute (3) Person under investigation for COVID-19 Status: Acute (4) SBO (small bowel obstruction) Status: Acute (5) Smoking addiction Status: Acute Brief Hospital Course Allergies Allergies Coded Allergies Type Severity Reaction Last Updated Verified No Known Drug Allergies 01/23/21 No Vital Signs Vital Signs Date Time Temp Pulse Resp B/P (MAP) Pulse Ox O2 Delivery O2 Flow Rate FiO2 01/29/21 10:48 98.3 65 18 94/60 (71) 98 Nasal Cannula 2.0 98.3 Brief Hospital Course Ms. Alas is a 70 old female who presented with SBO. Consultation was placed with general surgery. She had NG tube placed and treated with bowel rest and IV fluids. Consultation was also placed to Infectious Disease due to history of HIV, currently on Atripla. She was recommended to hold her Atripla due to NPO status. Once her bowel function improved her metoprolol was resumed. Her diet was advanced as tolerated, and she was stable for discharge home with home health when she was tolerating regular diet. Discharge Information Condition at Discharge: Improved Follow Up: Weeks Disposition/Orders: D/C to Home w/ HH Justicifation of Admission Dx: Justifications for Admission: Justification of Admission Dx: Yes SP SANDHU MD Jan 29, 2021 12:47
--- NOTE | 2021-01-29 12:50 | SNU/HH DC ---
DISCHARGE WITH HOME HEALTH DISCHARGE INFORMATION: Discharge Date: Jan 29, 2021 Final Diagnosis: Problems Medical Problems: (1) Abdominal pain Status: Acute (2) Nausea and vomiting Status: Acute (3) Person under investigation for COVID-19 Status: Acute (4) SBO (small bowel obstruction) Status: Acute (5) Smoking addiction Status: Acute Condition on Discharge: Stable CODE STATUS: Code Status: Full HOME HEALTH: Face to Face: I certify this patient is under my care and that I, or a nurse practitioner or physician's nurses assistant working with me, had a face to face encounter that meets the physician face to face encounter requirements with this patient on 01/29/2021. Medical Complications: COPD, Other (HIV) RN For Eval/Treatment: Yes Pt Meets Homebound Status: Extreme weakness w/ amb., Limited distance walking POST DISCHARGE ORDERS: DIET AFTER DISCHARGE: Cardiac CERTIFICATION STATEMENT: Certification Statement: Certification Statement: Based on the above finding, I certify that this patient is confined to the home and needs intermittent long-term care, physical therapy and/or speech therapy, or continues to need occupational therapy.~ This patient is under my care, and I have initiated the establishment of the plan of care.~ This patient will be followed by myself or a community physician who will periodically review the plan of care. SP SANDHU MD Jan 29, 2021 12:50
[2021-01-29] MEDS ORDERED: MIRT-7 PO (12:56)
[2021-01-29 14:25] VITALS: BP 106/64
[2021-01-29] MEDS: ENOXAPARIN 30 MG/0.3 ML SYRINGE. SQ SCH (15:58)
--- NOTE | 2021-01-29 17:40 | NUR ---
Pt. discharged to home with Rx. Verbalized understanding of discharge instructions.
== END 2021-01-29 17:48 | disposition home health service (06) | DRG 388 ==
LOC: ER 11:57 → 6 SOUTH 14:28 → 4 NORTH 01-24 13:10
PROVIDERS: ADMIT Internal Medicine; ATTEND Internal Medicine
DX: K56.50 Intestinal adhesions [bands], unspecified as to partial versus complete obstruction (principal); E43 Unspecified severe protein-calorie malnutrition; Z68.1 Body mass index [BMI] 19.9 or less, adult; R79.89 Other specified abnormal findings of blood chemistry; R74.8 Abnormal levels of other serum enzymes; R62.7 Adult failure to thrive; D64.9 Anemia, unspecified; F17.200 Nicotine dependence, unspecified, uncomplicated; F41.9 Anxiety disorder, unspecified; I10 Essential (primary) hypertension; J44.9 Chronic obstructive pulmonary disease, unspecified; Z20.822 Contact with and (suspected) exposure to COVID-19; Z21 Asymptomatic human immunodeficiency virus [HIV] infection status; Z90.710 Acquired absence of both cervix and uterus; Z85.3 Personal history of malignant neoplasm of breast
CPT/HCPCS: 36415; 43752; 74018; 74022; 74177; 74250; 80048; 80053; 83605; 83690; 83735; 83880; 84100; 84145; 84484; 85025; 93005; 96361; 96372; 96374; 96375; 96376; 99285; C9113; G0480; J0330; J1100; J1650; J2270; J2370; J2405; J2704; J2710; J3010; J3490; J7030; Q9967; U0003; 97110-GP; 97530-GP; 97535-GO; G0378; Q0167